=== PATIENT | male | born 1975 | race American Indian/Alaskan Native ===

== ENCOUNTER 2017-07-30 23:59 | Observation (INO) | payer MEDICAID ==
[2017-07-31 00:08] VITALS: RESP 18; TEMP 99.1
[2017-07-31] MEDS ORDERED: Sodium Chloride 0.9% 1,000 ML IV STA (00:36)
--- NOTE | 2017-07-31 00:39 | ED PDOC ---
HPI: General Adult Time Seen by Provider: 07/31/17 00:06 Chief Complaint (Nursing): Lower Extremity Problem/Injury Chief Complaint (Provider): Right knee pain, right wrist pain, possible syncope History Per: Patient History/Exam Limitations: no limitations Onset/Duration Of Symptoms: Unknown Have you had recent travel within the past 21 days to any of the following countries: [place], [place], [place] or [place]?: No Additional Complaint(s): Pt states when he got home he saw his knee was bleeding and his right wrist hurt. Pt states he drinks daily and does not know what happened to his knee. Pt states I dont remember, I just looked down and saw blood. EMS reports seizure activity. Pt was in room and began to tremble. RN asked EMS if this is what they witnessed and they said yes. Pt alert and oriented during trembling. Pt reports drinking daily and reports having several beers today. Past Medical History Reviewed: Historical Data, Nursing Documentation, Vital Signs Vital Signs: Last Vital Signs Temp 99.1 F 07/31/17 00:02 Pulse 96 H 07/31/17 04:31 Resp 18 07/31/17 04:31 BP 102/65 07/31/17 04:31 Pulse Ox 100 07/31/17 04:31 - Medical History PMH: Seizures Denies: Anxiety, Chronic Kidney Disease - Family History Family History: States: Unknown Family Hx - Social History Current smoker - smoking cessation education provided: No Alcohol: > 2 Drinks/Day Drugs: Denies - Immunization History Hx Tetanus Toxoid Vaccination: No Hx Influenza Vaccination: No Hx Pneumococcal Vaccination: No - Home Medications Home Medications: Ambulatory Orders Medication Instructions Recorded Folic Acid 1 mg PO DAILY #0 tab 08/26/16 Thiamine [Vitamin B1 Tab] 100 mg PO DAILY #0 tab 08/26/16 chlordiazePOXIDE [Librium] 25 mg PO TID #10 cap 08/26/16 levETIRAcetam [Keppra] 500 mg PO BID #0 tab 08/26/16 - Allergies Allergies/Adverse Reactions: Allergies Allergy/AdvReac Type Severity Reaction Status Date / Time No Known Allergies Allergy Verified 07/31/17 00:02 Review of Systems ROS Statement: Except As Marked, All Systems Reviewed And Found Negative Constitutional: Negative for: Fever, Chills Cardiovascular: Negative for: Chest Pain, Palpitations Gastrointestinal: Negative for: Nausea, Abdominal Pain Skin: Positive for: Other (Right knee) - Laboratory Results Result Diagrams: 07/31/17 00:20 07/31/17 00:20 - ECG O2 Sat by Pulse Oximetry: 98 Medical Decision Making Medical Decision Making: Pt in bed. NAD. Endorsed to Dr. Brooks pending sobriety. ED OBSERVATION Date of observation admission: 07/31/17 Time of observation admission: 03:00 - Observation admission statement Patient is being placed in observation because:: Alcohol intoxication - Goals of Observation Goals of observation are:: Sobriety - Progress Note Progress Note: 07/31/17 05:22 In bed. Sleeping. Disposition - Clinical Impression Clinical Impression: Alcohol abuse with intoxication, Knee laceration - Patient ED Disposition Is Patient to be Admitted: Transfer of Care - Disposition Disposition: Transfer of Care Disposition Time: 05:22 Condition: STABLE Forms: [facility] (Polish) Laceration - Laceration Repair Right lateral knee Wound Length (In cm): 2 Description Of Wound: Linear Wound Cleansed With: Sterile Saline Anesthesia: Lidocaine 1%, With Epi Wound Examination: Irrigated With Saline, No FB With Wound Exploration, No Tendon Injury With Wound Exploration Wound Closure: Suture Suture Technique And Material Used: Nylon Wound Complexity: Simple (Sutured by Dr. Meredith Nuñez, family sociologist under supervision of myself and Dr. Brooks)
[2017-07-31 00:41] LABS: BASO % 0.3 % (0.0-2.0); EOS % 0.5 % (0.0-4.0); HEMATOCRIT 35.3 % (35.0-51.0); LYMPH # 1.9 K/uL (1.0-4.3); LYMPH % 50.5 % (20.0-40.0); MEAN CELL VOLUME 100.9 fl (80.0-94.0); MEAN CORPUSCULAR HEMOGLOBIN 33.4 pg (27.0-31.0); MEAN CORPUSCULAR HGB CONC 33.1 g/dL (33.0-37.0); MONO # 0.5 K/uL (0.0-0.8); MONO % 14.2 % (0.0-10.0); NEUT # 1.3 K/uL (1.8-7.0); NEUT % 34.5 % (50.0-75.0); NRBC % 0.5 % (0.0-0.0); RED CELL DISTRIBUTION WIDTH 12.4 % (11.5-14.5); WHITE BLOOD COUNT 3.7 K/uL (4.8-10.8)
[2017-07-31 00:51] LABS: ALKALINE PHOSPHATASE 70 U/L (38-126); ALT/SGPT 34 U/L (21-72); AST/SGOT 166 U/L (17-59); BILIRUBIN,TOTAL 1.1 mg/dl (0.2-1.3); BLOOD UREA NITROGEN 5 mg/dl (9-20); CALCIUM 9.4 mg/dL (8.4-10.2); CARBON DIOXIDE 21 mmol/L (22-30); CHLORIDE 107 mmol/L (98-107); GFR AFRICAN-AMERICAN > 60; GLUCOSE,RANDOM 113 mg/dL (75-110); POTASSIUM 4.7 MMOL/L (3.6-5.0); SODIUM 151 mmol/l (132-148); TOTAL PROTEIN 9.1 G/DL (6.3-8.2)
[2017-07-31 01:00] LABS: ALB/GLOB RATIO 1.5 (1.0-2.1)
[2017-07-31 01:01] LABS: ALCOHOL SERUM 474 mg/dl (0-10)
[2017-07-31 01:35] LABS: PARTIAL THROMBOPLASTIN TIME 31.9 Seconds (25.6-37.1)
[2017-07-31] MEDS ORDERED: Lidocaine 2% w Epi 1:100,000 Inj IJ STA (01:55)
[2017-07-31] MEDS ORDERED: Lidocaine 2% w Epi 1:100,000 Inj IJ ONE (02:03)
[2017-07-31 06:08] VITALS: O2SAT 100
--- NOTE | 2017-07-31 07:03 | ED PDOC ---
- Laboratory Results Result Diagrams: 07/31/17 00:20 07/31/17 00:20 - ECG O2 Sat by Pulse Oximetry: 100 (RA) Pulse Ox Interpretation: Normal Medical Decision Making Medical Decision Making: Time: 6:00 --Patient is signed out to me by Angela Cabello PA-C, pending clinical sobriety. *see ED-OBS tab Scribe Attestation: Documented by Hilda Hua, acting as a scribe for Damian Brooks MD Provider Scribe Attestation: All medical record entries made by the Scribe were at my direction and personally dictated by me. I have reviewed the chart and agree that the record accurately reflects my personal performance of the history, physical exam, medical decision making, and the department course for this patient. I have also personally directed, reviewed, and agree with the discharge instructions and disposition. Disposition - Clinical Impression Clinical Impression: Alcohol abuse with intoxication, Knee laceration - POA Present On Arrival: Falls Or Trauma - Disposition Disposition: Transfer of Care Disposition Time: 07:00 Condition: STABLE Patient Signed Over To: Ira Gómez ED OBSERVATION Date of observation admission: 07/31/17 Time of observation admission: 03:00 - Observation admission statement Patient is being placed in observation because:: alcohol intoxication - Goals of Observation Goals of observation are:: clinical sobriety - Progress Note Progress Note: 07/31/17 Time: 6:00 --Patient is resting with stable vital signs Time: 7:00 --Patient is signed out by me to Dr. Ira Gómez, pending clinical sobriety
--- NOTE | 2017-07-31 07:22 | ED PDOC ---
- Laboratory Results Result Diagrams: 07/31/17 00:20 07/31/17 00:20 - ECG O2 Sat by Pulse Oximetry: 100 (RA) Pulse Ox Interpretation: Normal Medical Decision Making Medical Decision Making: Receiving sign out: Patient signed out to me by Dr. Brooks at [address] head and clinical sobriety. See ED-OBS for further documentation Scribe Attestation: Documented by Vickie Wakefield and Nima Daniels acting as a scribe for Ira Gómez MD. Provider Attestation: All medical record entries made by the Scribe were at my direction and personally dictated by me. I have reviewed the chart and agree that the record accurately reflects my personal performance of the history, physical exam, medical decision making, and the department course for this patient. I have also personally directed, reviewed, and agree with the discharge instructions and disposition. Disposition - Clinical Impression Clinical Impression: Alcohol abuse with intoxication, Knee laceration - POA Present On Arrival: Falls Or Trauma - Disposition Disposition: Routine/Home Disposition Time: 14:32 Condition: STABLE ED OBSERVATION Date of observation admission: 07/31/17 Time of observation admission: 03:00 - Progress Note Progress Note: 07/31/17 07:00 Patient signed out to me pending CT head, clinical sobriety. 07/31/17 08:28 Patient resting in room, no acute distress. 07/31/17 09:42 CT Head Impression: No intracranial hemorrhage. No extra-axial collection. No recent infarct. Cerebral cortical atrophy greater than expected for the patient age, however not significantly changed from the prior study. 07/31/17 10:01 XR Right wrist impression: No fracture. XR Right knee impression: No appreciable fracture. No joint effusion. 07/31/17 11:30 Patient resting comfortably with stable vitals 07/31/17 1:30 Patient is currently resting, no acute distress
--- NOTE | 2017-07-31 09:43 | CT ---
PROCEDURE: CT HEAD WITHOUT CONTRAST. HISTORY: head injury? COMPARISON: 11/18/2016 TECHNIQUE: Axial computed tomography images were obtained through the head/brain without intravenous contrast. Radiation dose: Total exam DLP = 828 mGy-cm. This CT exam was performed using one or more of the following dose reduction techniques: Automated exposure control, adjustment of the mA and/or kV according to patient size, and/or use of iterative reconstruction technique. FINDINGS: HEMORRHAGE: No intracranial hemorrhage. BRAIN: No mass effect or edema. Cerebral cortical atrophy greater than the patient's expected age. VENTRICLES: Unremarkable. No hydrocephalus. CALVARIUM: Unremarkable. PARANASAL SINUSES: Unremarkable as visualized. No significant inflammatory changes. MASTOID AIR CELLS: Unremarkable as visualized. No inflammatory changes. OTHER FINDINGS: None. IMPRESSION: No intracranial hemorrhage. No extra-axial collection. No recent infarct. Cerebral cortical atrophy greater than expected for the patient's age, however not significantly changed from the prior study.
--- NOTE | 2017-07-31 10:00 | RAD ---
PROCEDURE: Right Knee Radiographs. HISTORY: knee injury COMPARISON: 02/01/2015 FINDINGS: BONES: Three views of the right knee were performed. No appreciable fracture is noted. Patella is in normal location. Mild degenerative changes are seen. Tibial plateaus are intact. No lytic process is identified. Mild osteopenia. JOINTS: Mild DJD. JOINT EFFUSION: None. OTHER FINDINGS: None. IMPRESSION: No appreciable fracture. No joint effusion.
--- NOTE | 2017-07-31 10:02 | RAD ---
PROCEDURE: Right Wrist Radiographs. HISTORY: wrist pain, syncope COMPARISON: None. FINDINGS: BONES: Three views of the right wrist were performed. Navicular bone is intact. There is some probable mild degenerative changes of the distal right ulna. Visualized metacarpals are intact. No abnormal carpal bone widening is seen. JOINTS: Normal. No dislocation. SOFT TISSUES: Normal. OTHER FINDINGS: None. IMPRESSION: No fracture.
[2017-07-31 13:20] VITALS: BP 136/53; PULSE 101
== END 2017-07-31 16:00 | disposition home or self-care (01) ==
LOC: H.ER 23:59 → H.EROBSV 07-31 03:00
PROVIDERS: ADMIT Emergency Medicine; ATTEND Emergency Medicine
DX: F10.129 Alcohol abuse with intoxication, unspecified (principal); Z23 Encounter for immunization; S81.011A Laceration without foreign body, right knee, initial encounter; X58.XXXA Exposure to other specified factors, initial encounter; Y93.9 Activity, unspecified; Y92.9 Unspecified place or not applicable; Y90.8 Blood alcohol level of 240 mg/100 ml or more
CPT/HCPCS: 12001; 70450; 73100; 73562; 80053; 80171; 80320; 84484; 85025; 85610; 85730; 90471; 90715; 96360; 99285; G0378; J7040

== ENCOUNTER 2018-03-09 19:09 | Observation (INO) | payer MEDICAID, OTHER ==
[2018-03-09] MEDS ORDERED: Sodium Chloride 0.9% 1,000 ML IV STA (19:34)
[2018-03-09 20:09] LABS: BASO % 1.1 % (0.0-2.0); HEMOGLOBIN 11.5 g/dL (12.0-18.0); LYMPH # 0.4 K/uL (1.0-4.3); LYMPH % 16.4 % (20.0-40.0); MEAN CORPUSCULAR HEMOGLOBIN 32.9 pg (27.0-31.0); MEAN CORPUSCULAR HGB CONC 33.6 g/dL (33.0-37.0); MONO # 0.3 K/uL (0.0-0.8); MONO % 15.3 % (0.0-10.0); NEUT # 1.5 K/uL (1.8-7.0); NEUT % 67.2 % (50.0-75.0); NRBC % 0.7 % (0.0-0.0); RBC 3.49 Mil/uL (4.40-5.90); RED CELL DISTRIBUTION WIDTH 13.3 % (11.5-14.5); WHITE BLOOD COUNT 2.3 K/uL (4.8-10.8)
[2018-03-09 20:17] LABS: ALB/GLOB RATIO 1.4 (1.0-2.1); ALBUMIN 5.1 g/dL (3.5-5.0); ALT/SGPT 75 U/L (21-72); AST/SGOT 174 U/L (17-59); BLOOD UREA NITROGEN 9 mg/dl (9-20); CALCIUM 9.6 mg/dL (8.4-10.2); GFR AFRICAN-AMERICAN > 60; GFR NON-AFRICAN AMERICAN > 60
--- NOTE | 2018-03-09 21:21 | ED PDOC ---
HPI: Seizure Time Seen by Provider: 03/09/18 19:32 Chief Complaint (Nursing): Seizure Chief Complaint (Provider): Seizures History Per: Family (mother and father) History/Exam Limitations: no limitations Recent Seizure Activity Began: Just Before Arrival Number Of Seizures: One Length Of Seizures (Duration): Minutes (15) Quality Of Seizure: Generalized Precipitating Factor(s): Recent Alcohol Ingestion Associated Symptoms: denies: Bit Tongue, Incontinence Of Urine, Incontinence Of Stool, Injury As A Result Of Seizure Activity Additional History Per: Patient Additional Complaint(s): 42yo male with history of alcohol related seizures, alcoholism, who has been non -compliant with his seizure medications (keppra and dilantin) for the past week , presents to ED for evaluation after he had a seizure. Patient reports he felt as if a seizure was "coming on" so he went to the living room where his father witnessed the patient have a generalized tonic-clonic seizure, reported to be not as severe compared to prior seizures. Father states the seizure lasted for 15 minutes and states the patient was not "unconscious." Father states he did not note eyes rolling back, drooling, or urinary incontinence. Currently, patient reports he feels dizzy and shaky. Per family, patient drinks daily (3+ beers) and his last drink was yesterday. He offers no other medical complaints. PMD: Dr. Cespedes (patient has never visited, this is doctor provided by insurance) Past Medical History Reviewed: Historical Data, Nursing Documentation, Vital Signs Vital Signs: Last Vital Signs Temp 98.6 F 03/10/18 11:58 Pulse 75 03/10/18 11:58 Resp 18 03/10/18 11:58 BP 118/76 03/10/18 11:58 Pulse Ox 98 03/10/18 11:58 - Medical History PMH: Asthma, Seizures Denies: Anxiety, Chronic Kidney Disease Other PMH: alcoholsim - Surgical History Surgical History: No Surg Hx - Family History Family History: States: Diabetes, Hypertension - Living Arrangements Living Arrangements: With Family - Social History Current smoker - smoking cessation education provided: Yes Alcohol: > 2 Drinks/Day Drugs: Denies - Immunization History Hx Tetanus Toxoid Vaccination: No Hx Influenza Vaccination: No Hx Pneumococcal Vaccination: No - Home Medications Home Medications: Ambulatory Orders Medication Instructions Recorded levETIRAcetam [Keppra] 500 mg PO BID #0 tab 10/27/16 Phenytoin [Dilantin] 100 mg PO DAILY 03/10/18 - Allergies Allergies/Adverse Reactions: Allergies Allergy/AdvReac Type Severity Reaction Status Date / Time No Known Allergies Allergy Verified 03/09/18 19:11 Review of Systems ROS Statement: Except As Marked, All Systems Reviewed And Found Negative (as per HPI) ENT: Negative for: Other (drooling; tongue bite) Genitourinary Male: Negative for: Incontinence Neurological: Positive for: Seizures, Dizziness Physical Exam - Reviewed Nursing Documentation Reviewed: Yes Vital Signs Reviewed: Yes - Physical Exam Appears: Positive for: In Acute Distress. Negative for: Well (+ cachectic appearing) Head Exam: Positive for: ATRAUMATIC, NORMOCEPHALIC Skin: Positive for: Warm, Dry Eye Exam: Positive for: EOMI, PERRL ENT: Positive for: Pharynx Is (clear), Other (tacky mucus membranes) Neck: Positive for: Painless ROM, Supple Cardiovascular/Chest: Positive for: Regular Rate, Rhythm. Negative for: Murmur Respiratory: Positive for: Normal Breath Sounds. Negative for: Wheezing Gastrointestinal/Abdominal: Positive for: Soft. Negative for: Tenderness Back: Positive for: Normal Inspection. Negative for: Decreased ROM Extremity: Positive for: Other (extremity with poor muscle bulk; tremors noted to bilateral upper arms. intention tremor noted to bilateral lower legs. Motor strength 5/5 all extremities.). Negative for: Tenderness, Deformity Lymphatic: Negative for: Adenopathy Neurologic/Psych: Positive for: Alert, Oriented, Mood/Affect (anxious). Negative for: Motor/Sensory Deficits - Laboratory Results Result Diagrams: 03/09/18 19:56 03/09/18 19:56 - ECG O2 Sat by Pulse Oximetry: 100 (RA) Pulse Ox Interpretation: Normal Medical Decision Making Medical Decision Making: Impression: Seizure Differential: Including but not limited to breakthrough seizure, alcohol withdrawal seizure, delirium tremens, seizure secondary to subtherapeutic seizure medications, electrolyte abnormalities, dehydration Plan: -- Labs -- Ativan 2mg IVP -- IV Fluids -- UDS -- Continuous billing and insurance coordinator Labs demonstrate pancytopenia which appears chronic, as well as elevated lactic acid which can be c/w recent seizure. Pt persistently shaky in ER. Will hospitalize for alcohol withdrawal. Seizure may be due to medication noncompliance or withdrawal, and concern for recurrent seizure given both issues. [facility] Scribe Attestation: Documented by Vickie Wakefield, acting as a scribe for Louann Chavez MD Provider Scribe Attestation: All medical record entries made by the Scribe were at my direction and personally dictated by me. I have reviewed the chart and agree that the record accurately reflects my personal performance of the history, physical exam, medical decision making, and the department course for this patient. I have also personally directed, reviewed, and agree with the discharge instructions and disposition. Disposition - Clinical Impression Clinical Impression: Alcohol withdrawal, Generalized seizure Counseled Patient/Family Regarding: Studies Performed, Diagnosis - Disposition Disposition Time: 23:00 Condition: FAIR - Pt Status Changed To: Hospital Disposition Of: Observation - POA Present On Arrival: Falls Or Trauma
[2018-03-09] MEDS ORDERED: levETIRAcetam 500 MG in Sodium Chloride 0.9% 100 ML IVPB STA (23:09)
[2018-03-10 03:29] LABS: BARBITURATES, UR NEGATIVE (NEGATIVE)
[2018-03-10 03:30] LABS: BENZODIAZEPINES, UR NEGATIVE (NEGATIVE); OPIATES, UR NEGATIVE (NEGATIVE); PHENCYCLIDINE, UR NEGATIVE (NEGATIVE)
--- NOTE | 2018-03-10 08:54 | RAD ---
HISTORY: seziure COMPARISON: Frontal chest radiograph 11/17/2016. FINDINGS: LUNGS: No active pulmonary disease. PLEURA: No significant pleural effusion identified, no pneumothorax apparent. CARDIOVASCULAR: Normal. OSSEOUS STRUCTURES: No significant abnormalities. VISUALIZED UPPER ABDOMEN: Normal. OTHER FINDINGS: None. IMPRESSION: No interval acute cardiopulmonary disease appreciated.
[2018-03-10] MEDS ORDERED: Pneumococcal 23-Valent Vaccine IM ONE (09:00)
[2018-03-10] MEDS ORDERED: Multivitamin With Minerals Tab PO SCH (09:00)
[2018-03-10] MEDS: Sodium Chloride 0.9% 500 ML IV SCH ×2 (09:12→18:06)
--- NOTE | 2018-03-10 09:20 | CP.PCM.HP ---
History of Present Illness - History of Present Illness History of Present Illness: 42 yo ,m, PMhx/o ETOH related seizures, alcoholism, who has been non-compliant with his seizure medications (keppra and dilantin) for the past week admitted for one episode of seizure. Patient reports he felt as if a seizure was "coming on" so he went to the living room where his father witnessed the patient have a generalized tonic-clonic seizure, reported to be not as severe compared to prior seizures. Father states the seizure lasted for 15 minutes and states the patient was not "unconscious." Father states he did not note eyes rolling back, drooling, or urinary incontinence. Per family, patient drinks daily (3+ beers) and his last drink was yesterday. He offers no other medical complaints. He denies fever, cough, SOB, n,v,d,abd pain PMD: Dr. Cespedes (patient has never visited, this is doctor provided by insurance) Present on Admission - Present on Admission Any Indicators Present on Admission: No History of DVT/PE: No History of Uncontrolled Diabetes: No Urinary Catheter: No Review of Systems - Review of Systems All systems: reviewed and no additional remarkable complaints except - Neurological Additional comments: seizure Past Patient History - Infectious Disease Hx of Infectious Diseases: None - Past Medical History & Family History Past Medical History?: Yes - Past Social History Smoking Status: Never Smoked - CARDIAC Hx Cardiac Disorders: No - PULMONARY Hx Respiratory Disorders: Yes Hx Asthma: Yes - NEUROLOGICAL Hx Neurological Disorder: Yes Hx Seizures: Yes - HEENT Hx HEENT Problems: No - RENAL Hx Chronic Kidney Disease: No - ENDOCRINE/METABOLIC Hx Endocrine Disorders: No - HEMATOLOGICAL/ONCOLOGICAL Hx Blood Disorders: No - INTEGUMENTARY Hx Dermatological Problems: No - MUSCULOSKELETAL/RHEUMATOLOGICAL Hx Musculoskeletal Disorders: Yes Hx Falls: Yes Hx Fractures: Yes (left arm) - GASTROINTESTINAL Hx Gastrointestinal Disorders: No - GENITOURINARY/GYNECOLOGICAL Hx Genitourinary Disorders: No - PSYCHIATRIC Hx Psychophysiologic Disorder: Yes Hx Anxiety: No Hx Substance Use: No (DENIES) - SURGICAL HISTORY Hx Surgeries: Yes Other/Comment: Left arm Sx - ANESTHESIA Hx Anesthesia: Yes Hx Anesthesia Reactions: No Hx Malignant Hyperthermia: No Meds Allergies/Adverse Reactions: Allergies Allergy/AdvReac Type Severity Reaction Status Date / Time No Known Allergies Allergy Verified 03/09/18 19:11 Physical Exam - Constitutional Appears: Non-toxic, No Acute Distress - Head Exam Head Exam: ATRAUMATIC, NORMOCEPHALIC - Eye Exam Eye Exam: Normal appearance - ENT Exam ENT Exam: Mucous Membranes Moist - Neck Exam Neck exam: Positive for: Normal Inspection - Respiratory Exam Respiratory Exam: Clear to Auscultation Bilateral. absent: Rhonchi, Wheezes - Cardiovascular Exam Cardiovascular Exam: REGULAR RHYTHM, +S1, +S2 - GI/Abdominal Exam GI & Abdominal Exam: Normal Bowel Sounds, Soft. absent: Tenderness - Extremities Exam Extremities exam: Positive for: normal inspection. Negative for: pedal edema - Back Exam Back exam: NORMAL INSPECTION - Neurological Exam Neurological exam: Alert, Oriented x3 - Psychiatric Exam Psychiatric exam: Normal Affect, Normal Mood - Skin Skin Exam: Intact Results - Vital Signs Recent Vital Signs: Last Vital Signs Temp 98.7 F 03/10/18 08:04 Pulse 83 03/10/18 08:04 Resp 18 03/10/18 08:04 BP 111/72 03/10/18 08:04 Pulse Ox 97 03/10/18 08:04 - Labs Result Diagrams: 03/09/18 19:56 03/09/18 19:56 Labs: Laboratory Results - last 24 hr 03/09/18 03/09/18 03/09/18 19:56 19:56 19:56 WBC 2.3 L RBC 3.49 L Hgb 11.5 L Hct 34.2 L MCV 98.0 H D MCH 32.9 H MCHC 33.6 RDW 13.3 Plt Count 70 L D MPV 10.0 Neut % (Auto) 67.2 Lymph % (Auto) 16.4 L [place] % (Auto) 15.3 H Eos % (Auto) 0.0 Baso % (Auto) 1.1 Neut # (Auto) 1.5 L Lymph # (Auto) 0.4 L [place] # (Auto) 0.3 Eos # (Auto) 0.0 Baso # (Auto) 0.0 Sodium 141 Potassium 3.8 Chloride 98 Carbon Dioxide 24 Anion Gap 23 H BUN 9 Creatinine 0.5 L Est GFR ( Amer) > 60 Est GFR (Non-Af Amer) > 60 POC Glucose (mg/dL) Random Glucose 125 H Lactic Acid 2.5 H Calcium 9.6 Phosphorus 4.8 H Magnesium 1.6 Total Bilirubin 1.1 AST 174 H ALT 75 H D Alkaline Phosphatase 89 Total Creatine Kinase 157 Total Protein 8.7 H Albumin 5.1 H Globulin 3.6 Albumin/Globulin Ratio 1.4 Urine Opiates Screen Urine Methadone Screen Ur Barbiturates Screen Phenytoin Ur Phencyclidine Scrn Ur Amphetamines Screen U Benzodiazepines Scrn U Oth Cocaine Metabols U Cannabinoids Screen Alcohol, Quantitative < 10 03/09/18 03/09/18 03/10/18 20:03 22:33 02:51 WBC RBC Hgb Hct MCV MCH MCHC RDW Plt Count MPV Neut % (Auto) Lymph % (Auto) [place] % (Auto) Eos % (Auto) Baso % (Auto) Neut # (Auto) Lymph # (Auto) [place] # (Auto) Eos # (Auto) Baso # (Auto) Sodium Potassium Chloride Carbon Dioxide Anion Gap BUN Creatinine Est GFR ( Amer) Est GFR (Non-Af Amer) POC Glucose (mg/dL) 109 Random Glucose Lactic Acid Calcium Phosphorus Magnesium Total Bilirubin AST ALT Alkaline Phosphatase Total Creatine Kinase Total Protein Albumin Globulin Albumin/Globulin Ratio Urine Opiates Screen Negative Urine Methadone Screen Negative Ur Barbiturates Screen Negative Phenytoin < 3.0 L Ur Phencyclidine Scrn Negative Ur Amphetamines Screen Negative U Benzodiazepines Scrn Negative U Oth Cocaine Metabols Negative U Cannabinoids Screen Negative Alcohol, Quantitative Assessment & Plan - Assessment and Plan (Free Text) Plan: Assessment/Plan 1) Generalized seizure -reports hx/o seizure vs ETOH withdrawal Patient not compliance with medications -neurologist consult suggested. -activan, Librium 2) Pancytopenia -unspecified -may be secondary ETOH -f/u Abd US f/u HIV, hep B, hep C -f/u cbc, cmp, folate , vit b12 3) ETOH abuser Drinks daily 3 beers started at age 21 CIWA score 2 -ETOH withdrawal protocol 4) DVT Prophylaxis SCD due to thrombocytopenia
[2018-03-10] MEDS: levETIRAcetam 500 MG in Sodium Chloride 0.9% 100 ML IVPB SCH ×2 (11:11→21:44)
--- NOTE | 2018-03-10 15:57 | CP.PCM.CON ---
History of Present Illness - History of Present Illness History of Present Illness: Mr. Angulo is a 42-year-old man with a past medical history of alcoholism and seizure disorder, who is non-compliant with Keppra/Dilantin, and had a seizure yesterday that was witnessed by his father. He was brought in to the ED for evaluation. Review of Systems - Review of Systems All systems: reviewed and no additional remarkable complaints except Past Patient History - Infectious Disease Hx of Infectious Diseases: None - Past Medical History & Family History Past Medical History?: Yes - Past Social History Smoking Status: Never Smoked - CARDIAC Hx Cardiac Disorders: No - PULMONARY Hx Respiratory Disorders: Yes Hx Asthma: Yes - NEUROLOGICAL Hx Neurological Disorder: Yes Hx Seizures: Yes - HEENT Hx HEENT Problems: No - RENAL Hx Chronic Kidney Disease: No - ENDOCRINE/METABOLIC Hx Endocrine Disorders: No - HEMATOLOGICAL/ONCOLOGICAL Hx Blood Disorders: No - INTEGUMENTARY Hx Dermatological Problems: No - MUSCULOSKELETAL/RHEUMATOLOGICAL Hx Musculoskeletal Disorders: Yes Hx Falls: Yes Hx Fractures: Yes (left arm) - GASTROINTESTINAL Hx Gastrointestinal Disorders: No - GENITOURINARY/GYNECOLOGICAL Hx Genitourinary Disorders: No - PSYCHIATRIC Hx Psychophysiologic Disorder: Yes Hx Anxiety: No Hx Substance Use: No (DENIES) - SURGICAL HISTORY Hx Surgeries: Yes Other/Comment: Left arm Sx - ANESTHESIA Hx Anesthesia: Yes Hx Anesthesia Reactions: No Hx Malignant Hyperthermia: No Meds Allergies/Adverse Reactions: Allergies Allergy/AdvReac Type Severity Reaction Status Date / Time No Known Allergies Allergy Verified 03/09/18 19:11 - Medications Medications: Current Medications Chlordiazepoxide (Librium) 25 mg PO Q4H PRN PRN Reason: Withdrawl Folic Acid (Folic Acid) 1 mg PO DAILY [facility] Last Admin: 03/10/18 08:48 Dose: 1 mg Sodium Chloride (Sodium Chloride 0.9%) 500 mls @ 100 mls/hr IV .Q5H SEUN Last Admin: 03/10/18 09:12 Dose: 100 mls/hr Levetiracetam 500 mg/ Sodium (Chloride) 105 mls @ 210 mls/hr IVPB Q12 SEUN Last Admin: 03/10/18 11:11 Dose: 210 mls/hr Lorazepam (Ativan) 1 mg IVP Q4H PRN PRN Reason: Symptoms of alcohol withdrawl Multivitamins/Minerals (Therapeutic-M Tab) 1 tab PO DAILY [facility] Last Admin: 03/10/18 08:48 Dose: 1 tab Thiamine HCl (Vitamin B1 Tab) 100 mg PO DAILY [facility] Last Admin: 03/10/18 09:12 Dose: 100 mg Physical Exam - Neurological Exam Neurological exam: Alert, CN II-XII Intact, Normal Gait, Oriented x3, Reflexes Normal Results - Vital Signs Recent Vital Signs: Last Vital Signs Temp 98.6 F 03/10/18 11:58 Pulse 75 03/10/18 11:58 Resp 18 03/10/18 11:58 BP 118/76 03/10/18 11:58 Pulse Ox 98 03/10/18 11:58 - Labs Result Diagrams: 03/09/18 19:56 03/09/18 19:56 Labs: Laboratory Results - last 24 hr 03/09/18 03/09/18 03/09/18 19:56 19:56 19:56 WBC 2.3 L RBC 3.49 L Hgb 11.5 L Hct 34.2 L MCV 98.0 H D MCH 32.9 H MCHC 33.6 RDW 13.3 Plt Count 70 L D MPV 10.0 Neut % (Auto) 67.2 Lymph % (Auto) 16.4 L Winkler % (Auto) 15.3 H Eos % (Auto) 0.0 Baso % (Auto) 1.1 Neut # (Auto) 1.5 L Lymph # (Auto) 0.4 L Winkler # (Auto) 0.3 Eos # (Auto) 0.0 Baso # (Auto) 0.0 Sodium 141 Potassium 3.8 Chloride 98 Carbon Dioxide 24 Anion Gap 23 H BUN 9 Creatinine 0.5 L Est GFR ( Amer) > 60 Est GFR (Non-Af Amer) > 60 POC Glucose (mg/dL) Random Glucose 125 H Lactic Acid 2.5 H Calcium 9.6 Phosphorus 4.8 H Magnesium 1.6 Total Bilirubin 1.1 AST 174 H ALT 75 H D Alkaline Phosphatase 89 Total Creatine Kinase 157 Total Protein 8.7 H Albumin 5.1 H Globulin 3.6 Albumin/Globulin Ratio 1.4 Urine Opiates Screen Urine Methadone Screen Ur Barbiturates Screen Phenytoin Ur Phencyclidine Scrn Ur Amphetamines Screen U Benzodiazepines Scrn U Oth Cocaine Metabols U Cannabinoids Screen Alcohol, Quantitative < 10 03/09/18 03/09/1818 20:03 22:33 02:51 WBC RBC Hgb Hct MCV MCH MCHC RDW Plt Count MPV Neut % (Auto) Lymph % (Auto) Winkler % (Auto) Eos % (Auto) Baso % (Auto) Neut # (Auto) Lymph # (Auto) Winkler # (Auto) Eos # (Auto) Baso # (Auto) Sodium Potassium Chloride Carbon Dioxide Anion Gap BUN Creatinine Est GFR ( Amer) Est GFR (Non-Af Amer) POC Glucose (mg/dL) 109 Random Glucose Lactic Acid Calcium Phosphorus Magnesium Total Bilirubin AST ALT Alkaline Phosphatase Total Creatine Kinase Total Protein Albumin Globulin Albumin/Globulin Ratio Urine Opiates Screen Negative Urine Methadone Screen Negative Ur Barbiturates Screen Negative Phenytoin < 3.0 L Ur Phencyclidine Scrn Negative Ur Amphetamines Screen Negative U Benzodiazepines Scrn Negative U Oth Cocaine Metabols Negative U Cannabinoids Screen Negative Alcohol, Quantitative Assessment & Plan (1) Generalized seizure Assessment and Plan: Resume home seizure medications and follow up with Dr. Haynes (neurologist). Status: Acute Priority: High
--- NOTE | 2018-03-10 16:53 | US ---
HISTORY: abn enzymes COMPARISON: Abdomen ultrasound examination 10/01/2013. TECHNIQUE: Sonographic evaluation of the abdomen. FINDINGS: LIVER: Measures 16.6 cm. Diffusely increased echogenicity of the liver parenchyma suggesting diffuse fatty infiltration. No mass. No intrahepatic bile duct dilatation. GALLBLADDER: Unremarkable. No gallstones. COMMON BILE DUCT: Measures 3.0 mm. No stones. No dilatation. PANCREAS: Unremarkable as visualized. No mass. No ductal dilatation. RIGHT KIDNEY: Measures 10.2cm. Normal echogenicity. No calculus, mass, or hydronephrosis. LEFT KIDNEY: Measures 9.4cm. Normal echogenicity. No calculus, mass, or hydronephrosis. SPLEEN: Normal in size and contour. No mass. AORTA: No aneurysmal dilatation. IVC: Unremarkable. OTHER FINDINGS: None. IMPRESSION: Hepatic steatosis suggested without additional hepatic, gallbladder or pancreas. Remainder the examination appears unremarkable.
[2018-03-10 21:19] LABS: HEPATITIS B SURFACE AG Negative (NEGATIVE)
[2018-03-10 21:24] LABS: HEPATITIS B CORE AB NEGATIVE (NEGATIVE)
[2018-03-10 21:37] LABS: HEPATITIS C ANTIBODY NEGATIVE (NEGATIVE)
[2018-03-11 00:10] VITALS: RESP 18; O2SAT 99
[2018-03-11 04:33] VITALS: BP 124/86; PULSE 106; TEMP 98.5
[2018-03-12 05:33] LABS: % CD4 (T HELPER CELL) 50 Percent (30-61); % CD8 (SUPPRESSOR T CELL) 37 Percent (12-42); ABSOLUTE CD4 CELLS 401 Cells/mcL (490-1740); ABSOLUTE CD8 CELLS 294 Cells/mcL (180-1170); ABSOLUTE LYMPHOCYTES 799 Cells/mcL (850-3900); HELPER/SUPPRESSOR RATIO 1.36 Ratio (0.86-5.00)
== END 2018-03-11 06:03 | disposition left against medical advice (07) ==
LOC: H.ER 19:09 → H.ERHOLD 22:27 → H.TEL 03-10 02:32
PROVIDERS: ADMIT Family Medicine; ATTEND Family Medicine
DX: G40.409 Other generalized epilepsy and epileptic syndromes, not intractable, without status epilepticus (principal); E11.9 Type 2 diabetes mellitus without complications; I10 Essential (primary) hypertension; J45.909 Unspecified asthma, uncomplicated; Z91.14 Patient's other noncompliance with medication regimen; Z91.19 Patient's noncompliance with other medical treatment and regimen; Z79.899 Other long term (current) drug therapy; D61.818 Other pancytopenia; F10.239 Alcohol dependence with withdrawal, unspecified; F17.200 Nicotine dependence, unspecified, uncomplicated
CPT/HCPCS: 36415; 71045; 76700; 80053; 80185; 80299; 80320; 80324; 80345; 80346; 80349; 80353; 80358; 80361; 82550; 82948; 83605; 83735; 83992; 84100; 85025; 86360; 86705; 86706; 86803; 87340; 87389; 87517; 96361; 96365; 96366; 96367; 96375; 96376; 97165; 99285; G0378; G8987; G8988; G8989; J1953; J2060; J7040; Q2009

== ENCOUNTER 2018-03-11 07:18 | Inpatient (IN) | payer OTHER ==
--- NOTE | 2018-03-11 07:58 | ED PDOC ---
HPI: Seizure Time Seen by Provider: 03/11/18 07:36 Chief Complaint (Nursing): Seizure Chief Complaint (Provider): Seizure History Per: Patient History/Exam Limitations: no limitations Additional Complaint(s): 42 year old male returns to the hospital after he eloped from Room 408 this morning. Patient has no active complaints. PMD: Dr. Joshua Whitfield Neurologist: Dr. Haynes Past Medical History Reviewed: Historical Data, Nursing Documentation, Vital Signs Vital Signs: Last Vital Signs Temp 100 F H 03/12/18 08:00 Pulse 97 H 03/12/18 08:00 Resp 13 03/12/18 08:00 BP 118/83 03/12/18 08:00 Pulse Ox 100 03/12/18 08:00 - Medical History PMH: Asthma, Fractures (left arm), Seizures Denies: Anxiety, Chronic Kidney Disease - Surgical History Surgical History: No Surg Hx - Family History Family History: States: Diabetes, Hypertension - Immunization History Hx Tetanus Toxoid Vaccination: No Hx Influenza Vaccination: No Hx Pneumococcal Vaccination: No - Home Medications Home Medications: Ambulatory Orders Medication Instructions Recorded levETIRAcetam [Keppra] 500 mg PO BID #0 tab 08/26/16 Phenytoin [Dilantin] 100 mg PO DAILY 03/10/18 - Allergies Allergies/Adverse Reactions: Allergies Allergy/AdvReac Type Severity Reaction Status Date / Time No Known Allergies Allergy Verified 03/09/18 19:11 Review of Systems ROS Statement: Except As Marked, All Systems Reviewed And Found Negative Neurological: Positive for: Other (possible seizure) Physical Exam - Reviewed Nursing Documentation Reviewed: Yes Vital Signs Reviewed: Yes - Physical Exam Appears: Positive for: Non-toxic, No Acute Distress Head Exam: Positive for: ATRAUMATIC, NORMOCEPHALIC Skin: Positive for: Normal Color, Warm, Dry Eye Exam: Positive for: EOMI, Normal appearance, PERRL ENT: Positive for: Normal ENT Inspection Neck: Positive for: Normal, Painless ROM, Supple Cardiovascular/Chest: Positive for: Regular Rate, Rhythm. Negative for: Murmur Respiratory: Positive for: Normal Breath Sounds. Negative for: Respiratory Distress Gastrointestinal/Abdominal: Positive for: Normal Exam, Soft. Negative for: Tenderness Back: Positive for: Normal Inspection. Negative for: L CVA Tenderness, R CVA Tenderness, Vertebral Tenderness Extremity: Positive for: Other (Tremulousness in both arms). Negative for: Pedal Edema, Deformity Neurologic/Psych: Positive for: Alert, Oriented (x3). Negative for: Motor/ Sensory Deficits - Laboratory Results Result Diagrams: 03/12/18 04:30 03/12/18 04:30 - ECG O2 Sat by Pulse Oximetry: 100 (RA) Pulse Ox Interpretation: Normal - Critical Care Total Time (In Min): 60 Medical Decision Making Medical Decision Making: Time: 0800 Impression: alcohol withdrawal Plan: -- Alcohol Serum -- CMP -- Dilantin -- CBC with differentials -- Levetiracetam Time: 956 -- Patient's case discussed with Dr. Taylor for admission. 11:10 Called to bedside, pt agitated, diaphoretic, HR 170s, Ativan 2 mg X 2 administered. Case discussed with Dr. Holbrook, admit to ICU. Scribe Attestation: Documented by Mely Carrillo, acting as a scribe for Dr. Ira Gómez MD. Provider Scribe Attestation: All medical record entries made by the Scribe were at my direction and personally dictated by me. I have reviewed the chart and agree that the record accurately reflects my personal performance of the history, physical exam, medical decision making, and the department course for this patient. I have also personally directed, reviewed, and agree with the discharge instructions and disposition. Disposition - Clinical Impression Clinical Impression: Delirium tremens, Seizure - Patient ED Disposition Is Patient to be Admitted: Yes - Disposition Disposition Time: 09:52 Condition: SERIOUS - Pt Status Changed To: Hospital Disposition Of: Inpatient - Admit Certification Admit to Inpatient:: After my assessment, the patient will require hospitalization for at least two midnights. This is because of the severity of symptoms shown, intensity of services needed, and/or the medical risk in this patient being treated as an outpatient. - POA Present On Arrival: None
[2018-03-11] MEDS ORDERED: Sodium Chloride 0.9% 1,000 ML IV STA (08:01)
[2018-03-11 08:38] LABS: BASO % 1.2 % (0.0-2.0); EOS % 0.1 % (0.0-4.0); HEMOGLOBIN 11.6 g/dL (12.0-18.0); LYMPH # 0.9 K/uL (1.0-4.3); LYMPH % 23.5 % (20.0-40.0); MEAN CELL VOLUME 98.4 fl (80.0-94.0); MEAN CORPUSCULAR HEMOGLOBIN 33.8 pg (27.0-31.0); MEAN CORPUSCULAR HGB CONC 34.3 g/dL (33.0-37.0); MEAN PLATELET VOLUME 11.8 fl (7.2-11.7); MONO # 0.5 K/uL (0.0-0.8); MONO % 14.5 % (0.0-10.0); NEUT # 2.3 K/uL (1.8-7.0); NEUT % 60.7 % (50.0-75.0); NRBC % 0.8 % (0.0-0.0); RBC 3.42 Mil/uL (4.40-5.90); RED CELL DISTRIBUTION WIDTH 12.9 % (11.5-14.5); WHITE BLOOD COUNT 3.8 K/uL (4.8-10.8)
[2018-03-11 09:17] LABS: ALB/GLOB RATIO 1.3 (1.0-2.1); ALBUMIN 5.2 g/dL (3.5-5.0); ALT/SGPT 46 U/L (21-72); AST/SGOT 121 U/L (17-59); BLOOD UREA NITROGEN 5 mg/dl (9-20); CALCIUM 9.3 mg/dL (8.4-10.2); GFR AFRICAN-AMERICAN > 60; GFR NON-AFRICAN AMERICAN > 60
[2018-03-11] MEDS ORDERED: Multivitamin (MVI) 10 ML, Thiamine 100 MG, Folic Acid 1 MG in Dextrose 5%/0.45% NS 1,00... IV ONE ×2 (10:19→13:16)
[2018-03-11] MEDS ORDERED: Lorazepam 100 MG in Sodium Chloride 0.9% 50 ML IVPB SCH (11:45)
[2018-03-11 11:51] LABS: BARBITURATES, UR NEGATIVE (NEGATIVE)
[2018-03-11 11:52] LABS: BENZODIAZEPINES, UR NEGATIVE (NEGATIVE); OPIATES, UR NEGATIVE (NEGATIVE); PHENCYCLIDINE, UR NEGATIVE (NEGATIVE)
[2018-03-11] MEDS ORDERED: Propofol 10 mg/ml 2,000 MG/200 ML VIAL ONE (12:40)
[2018-03-11] MEDS ORDERED: Midazolam 2 MG/2 ML VIAL ONE (12:49)
[2018-03-11] MEDS ORDERED: Succinylcholine 200 mg/10 ml Inj IV ONE ×2 (13:02→14:15)
[2018-03-11] MEDS ORDERED: Midazolam 50 MG in Dextrose 5% In Water 50 ML IV ONE ×2 (13:11→18:36)
[2018-03-11] MEDS ORDERED: Propofol 10 mg/ml Inj (20 ML) IV ONE (13:12)
[2018-03-11] MEDS ORDERED: Midazolam 2 MG/2 ML VIAL IV ONE (13:13)
[2018-03-11] MEDS ORDERED: levETIRAcetam 1,000 MG in Sodium Chloride 0.9% 100 ML IVPB ONE (13:27)
[2018-03-11] MEDS ORDERED: Phenytoin 250 mg/5 ml Inj IVP ONE (13:29)
[2018-03-11] MEDS ORDERED: Sodium Chloride 0.9% 1,000 ML IV SCH (13:30)
[2018-03-11] MEDS: Propofol 10 mg/ml 1,000 MG/100 ML VIAL IV SCH ×2 (13:30→19:30)
--- NOTE | 2018-03-11 13:35 | CP.PCM.CON ---
History of Present Illness - History of Present Illness History of Present Illness: 42yo M. Seizure disorder and ETOH abuse. was admitted yeasterday for withdrawal seizure, non-compliant with meds. He then absconded this morning from the hospital, only to return in DT's, with hallucinations. Brought to ICU and intubated and sedated. Review of Systems - Review of Systems Systems not reviewed;Unavailable: Altered Mental Status Past Patient History - Infectious Disease Hx of Infectious Diseases: None - Past Medical History & Family History Past Medical History?: Yes - Past Social History Smoking Status: Never Smoked - CARDIAC Hx Cardiac Disorders: No - PULMONARY Hx Asthma: Yes - NEUROLOGICAL Hx Seizures: Yes - HEENT Hx HEENT Problems: No - RENAL Hx Chronic Kidney Disease: No - ENDOCRINE/METABOLIC Hx Endocrine Disorders: No - HEMATOLOGICAL/ONCOLOGICAL Hx Blood Disorders: No - INTEGUMENTARY Hx Dermatological Problems: No - MUSCULOSKELETAL/RHEUMATOLOGICAL Hx Fractures: Yes (left arm) - GASTROINTESTINAL Hx Gastrointestinal Disorders: No - GENITOURINARY/GYNECOLOGICAL Hx Genitourinary Disorders: No - PSYCHIATRIC Hx Anxiety: No - SURGICAL HISTORY Hx Surgeries: Yes Other/Comment: Left arm Sx - ANESTHESIA Hx Anesthesia: Yes Hx Anesthesia Reactions: No Hx Malignant Hyperthermia: No Meds Allergies/Adverse Reactions: Allergies Allergy/AdvReac Type Severity Reaction Status Date / Time No Known Allergies Allergy Verified 03/09/18 19:11 - Medications Medications: Current Medications Lorazepam 100 mg/ Sodium (Chloride) 100 mls @ 3 mls/hr IVPB .Q24H SEUN; 3 MG/HR PRN Reason: Protocol Midazolam HCl 50 mg/ Dextrose 100 mls @ 4 mls/hr IV .Q24H ONE; 2 MG/HR PRN Reason: Protocol Stop: 03/12/18 13:10 Propofol (Diprivan) 1,000 mg in 100 mls @ 1.864 mls/hr IV .Q24H SEUN; 5 MCG/KG/ MIN PRN Reason: Protocol Stop: 03/12/18 13:13 Multivitamins/Vitamin C 10 ml/Thiamine HCl 100 mg/ Folic Acid 1 mg/ Dextrose/ Sodium Chloride 1,011.2 mls @ 75 mls/hr IV .[id number] ONE Stop: 03/12/18 21:28 Multivitamins/Vitamin C 10 ml/Thiamine HCl 100 mg/ Folic Acid 1 mg/ Dextrose/ Sodium Chloride 1,011.2 mls @ 75 mls/hr IV .[id number] ONE Stop: 03/13/18 21:28 Sodium Chloride (Sodium Chloride 0.9%) 1,000 mls @ 75 mls/hr IV .[id number] SEUN Stop: 03/12/18 13:19 Levetiracetam 1,000 mg/ Sodium (Chloride) 110 mls @ 210 mls/hr IVPB ONCE ONE Stop: 03/11/18 13:58 Levetiracetam 500 mg/ Sodium (Chloride) 105 mls @ 210 mls/hr IVPB Q12 SEUN Phenytoin (Dilantin) 500 mg IVP ONCE ONE Stop: 03/11/18 13:30 Phenytoin (Dilantin) 100 mg IVP Q8 [facility] Physical Exam - Head Exam Head Exam: ATRAUMATIC, NORMAL INSPECTION, NORMOCEPHALIC - Eye Exam Eye Exam: EOMI, Normal appearance, PERRL - ENT Exam ENT Exam: Mucous Membranes Moist, Normal Exam - Neck Exam Neck exam: Positive for: Normal Inspection - Respiratory Exam Respiratory Exam: Clear to Auscultation Bilateral, NORMAL BREATHING PATTERN - Cardiovascular Exam Cardiovascular Exam: Tachycardia - GI/Abdominal Exam GI & Abdominal Exam: Normal Bowel Sounds, Soft. absent: Tenderness - Neurological Exam Neurological exam: Alert, Altered - Psychiatric Exam Psychiatric exam: Agitated Results - Vital Signs Recent Vital Signs: Last Vital Signs Temp 97.5 F L 03/11/18 07:26 Pulse 103 H 03/11/18 12:19 Resp 16 03/11/18 12:19 BP 140/87 03/11/18 12:19 Pulse Ox 100 03/11/18 12:19 - Labs Result Diagrams: 03/11/18 08:18 03/11/18 08:18 Labs: Laboratory Results - last 24 hr 03/11/18 03/11/18 03/11/18 08:18 08:18 08:18 WBC 3.8 L D RBC 3.42 L Hgb 11.6 L Hct 33.7 L MCV 98.4 H MCH 33.8 H MCHC 34.3 RDW 12.9 Plt Count 109 L D MPV 11.8 H Neut % (Auto) 60.7 Lymph % (Auto) 23.5 Collier % (Auto) 14.5 H Eos % (Auto) 0.1 Baso % (Auto) 1.2 Neut # (Auto) 2.3 Lymph # (Auto) 0.9 L Collier # (Auto) 0.5 Eos # (Auto) 0.0 Baso # (Auto) 0.0 Sodium 137 Potassium 4.9 Chloride 97 L Carbon Dioxide 22 Anion Gap 23 H BUN 5 L Creatinine 0.6 L Est GFR ( Amer) > 60 Est GFR (Non-Af Amer) > 60 POC Glucose (mg/dL) Random Glucose 104 Calcium 9.3 Total Bilirubin 2.3 H AST 121 H D ALT 46 Alkaline Phosphatase 67 Total Protein 9.1 H Albumin 5.2 H Globulin 3.9 Albumin/Globulin Ratio 1.3 Urine Opiates Screen Urine Methadone Screen Ur Barbiturates Screen Phenytoin 6.6 L Ur Phencyclidine Scrn Ur Amphetamines Screen U Benzodiazepines Scrn U Oth Cocaine Metabols U Cannabinoids Screen Alcohol, Quantitative < 10 03/11/18 03/11/18 11:06 11:20 WBC RBC Hgb Hct MCV MCH MCHC RDW Plt Count MPV Neut % (Auto) Lymph % (Auto) Collier % (Auto) Eos % (Auto) Baso % (Auto) Neut # (Auto) Lymph # (Auto) Collier # (Auto) Eos # (Auto) Baso # (Auto) Sodium Potassium Chloride Carbon Dioxide Anion Gap BUN Creatinine Est GFR ( Amer) Est GFR (Non-Af Amer) POC Glucose (mg/dL) 121 H Random Glucose Calcium Total Bilirubin AST ALT Alkaline Phosphatase Total Protein Albumin Globulin Albumin/Globulin Ratio Urine Opiates Screen Negative Urine Methadone Screen Negative Ur Barbiturates Screen Negative Phenytoin Ur Phencyclidine Scrn Negative Ur Amphetamines Screen Negative U Benzodiazepines Scrn Negative U Oth Cocaine Metabols Negative U Cannabinoids Screen Negative Alcohol, Quantitative Assessment & Plan (1) DTs (delirium tremens) Assessment and Plan: 42yo M. PMHx seizure disorder, ETOH abuse. p/w DT's. Neuro: sedated with propofol gtt and versed gtt. Loaded and continued both Dilantin and Keppra. Pulm: intubated for sedation, on PRVC. CV: hemodynamically stable. Hem: no acute issues Renal: Banana Bag, alternating with NS@75 Endo: no acute issues GI: NPO, will start tube feeds, Jevity. ID: no acute issues DVT proph - lovenox GI proph - protonix david for strict I/O's during acute illness Code status - full code Critical Care Time spent 45 minutes Multi-disciplinary rounds were performed with house staff, nursing, speech therapy, respiratory therapy, pharmacy and nutrition with integrated input from the primary team/attending and other consulting services. The documented time is cumulative and includes review of patient data/exams/labs/chart review and examination of the patient on rounds and throughout the day; time is exclusive of any procedures or teaching time. Status: Acute
--- NOTE | 2018-03-11 14:07 | PCM.PROC ---
Procedures Attestation:: I certify that I have explained the specified Operation(s) or Procedure(s), risks, benefits and reasonable alternatives to the Patient and/or other person responsible. The opportunity was given to ask questions and all questions answered - Intubation Time Out Performed: Yes Sedative: Versed, Other (propofol) Mg Given: 8mg and 150mg respectively Paralytic: Succinylholine Laryngoscope: Glidescope ET Tube Size: 7.5 ET Tube Uncuffed: No (cuffed) ET Tube Secured at Depth: 25 ET Tube Secured Locarion: Lips ET Tube Placement Confirmation: Visualized Passing Through Cords, Breath Sounds Equal Bilaterally, No Breath Sounds Over Epigastrum, Confirmation w/Capnometry Patient Tolerated Procedure: Well Procedure Immediate Complications: None
--- NOTE | 2018-03-11 14:50 | CP.PCM.HP ---
History of Present Illness - History of Present Illness History of Present Illness: CC: Seizure. 42 y/o M, Hx of Seizure, alcohol abuse, brought to [facility], [place] after he run away from room 408 on 02/09/18 earlier in AM, Pt was admitted previously on 08/17 for seizure. Pt was brought back to hospital by his mother and admitted to ICU intubated/ sedated due to withdrawal Seizure, associated to ETOH abuse, DTs, severe agitation, placed on Propofol/Midazolan. Worsening symptoms: Altered mental status, Allucinations, delusions. Pt c/o of hearing voices that are speaking to him. Aggravated factor: Non compliance with medications. No: fever, chills, n/v/d, abdominal pain, CP, palpitations, SOB, cough, urinary symptom. CXR: No active pulmonary disease. Present on Admission - Present on Admission Any Indicators Present on Admission: No Review of Systems - Review of Systems Systems not reviewed;Unavailable: Acuity of Condition, Intubated - EENT Nose/Mouth/Throat: Other (negative) Past Patient History - Infectious Disease Hx of Infectious Diseases: None - Past Medical History & Family History Past Medical History?: Yes Pertinent Family History: DM, HTN - Past Social History Smoking Status: Never Smoked Alcohol: Other (abuse) Drugs: Denies Home Situation {Lives}: Alone - CARDIAC Hx Cardiac Disorders: No - PULMONARY Hx Respiratory Disorders: Yes Hx Asthma: Yes - NEUROLOGICAL Hx Neurological Disorder: Yes Hx Seizures: Yes - HEENT Hx HEENT Problems: No - RENAL Hx Chronic Kidney Disease: No - ENDOCRINE/METABOLIC Hx Endocrine Disorders: No - HEMATOLOGICAL/ONCOLOGICAL Hx Blood Disorders: No - INTEGUMENTARY Hx Dermatological Problems: No - MUSCULOSKELETAL/RHEUMATOLOGICAL Hx Musculoskeletal Disorders: Yes Hx Fractures: Yes (left arm) - GASTROINTESTINAL Hx Gastrointestinal Disorders: No - GENITOURINARY/GYNECOLOGICAL Hx Genitourinary Disorders: No - PSYCHIATRIC Hx Psychophysiologic Disorder: Yes Hx Anxiety: No Hx Depression: Yes - SURGICAL HISTORY Hx Surgeries: Yes Other/Comment: Left arm Sx - ANESTHESIA Hx Anesthesia: Yes Hx Anesthesia Reactions: No Hx Malignant Hyperthermia: No Meds Allergies/Adverse Reactions: Allergies Allergy/AdvReac Type Severity Reaction Status Date / Time No Known Allergies Allergy Verified 03/09/18 19:11 Physical Exam - Head Exam Head Exam: NORMAL INSPECTION - Eye Exam Additional comments: Pupils sluggish reactive to light - ENT Exam Additional comments: Intubated - Neck Exam Neck exam: Positive for: Normal Inspection - Respiratory Exam Respiratory Exam: Decreased Breath Sounds (b/l) - GI/Abdominal Exam GI & Abdominal Exam: Normal Bowel Sounds, Soft - Extremities Exam Extremities exam: Positive for: normal inspection - Neurological Exam Additional comments: Intubated, sedated, tremulosness b/l arms, SCD'S b/l lower extremities. - Psychiatric Exam Additional comments: Sedated - Skin Skin Exam: Warm Results - Vital Signs Recent Vital Signs: Last Vital Signs Temp 97.5 F L 03/11/18 07:26 Pulse 137 H 03/11/18 13:25 Resp 16 03/11/18 12:19 BP 140/87 03/11/18 12:19 Pulse Ox 100 03/11/18 12:19 reviewed Uma - Labs Result Diagrams: 03/13/18 16:31 03/13/18 16:31 Labs: Laboratory Results - last 24 hr 03/11/18 03/11/18 03/11/18 08:18 08:18 08:18 WBC 3.8 L D RBC 3.42 L Hgb 11.6 L Hct 33.7 L MCV 98.4 H MCH 33.8 H MCHC 34.3 RDW 12.9 Plt Count 109 L D MPV 11.8 H Neut % (Auto) 60.7 Lymph % (Auto) 23.5 Ada % (Auto) 14.5 H Eos % (Auto) 0.1 Baso % (Auto) 1.2 Neut # (Auto) 2.3 Lymph # (Auto) 0.9 L Ada # (Auto) 0.5 Eos # (Auto) 0.0 Baso # (Auto) 0.0 Sodium 137 Potassium 4.9 Chloride 97 L Carbon Dioxide 22 Anion Gap 23 H BUN 5 L Creatinine 0.6 L Est GFR ( Amer) > 60 Est GFR (Non-Af Amer) > 60 POC Glucose (mg/dL) Random Glucose 104 Calcium 9.3 Total Bilirubin 2.3 H AST 121 H D ALT 46 Alkaline Phosphatase 67 Total Protein 9.1 H Albumin 5.2 H Globulin 3.9 Albumin/Globulin Ratio 1.3 Urine Opiates Screen Urine Methadone Screen Ur Barbiturates Screen Phenytoin 6.6 L Ur Phencyclidine Scrn Ur Amphetamines Screen U Benzodiazepines Scrn U Oth Cocaine Metabols U Cannabinoids Screen Alcohol, Quantitative < 10 03/11/18 03/11/18 03/11/18 11:06 11:20 14:18 WBC RBC Hgb Hct MCV MCH MCHC RDW Plt Count MPV Neut % (Auto) Lymph % (Auto) Ada % (Auto) Eos % (Auto) Baso % (Auto) Neut # (Auto) Lymph # (Auto) Ada # (Auto) Eos # (Auto) Baso # (Auto) Sodium Potassium Chloride Carbon Dioxide Anion Gap BUN Creatinine Est GFR ( Amer) Est GFR (Non-Af Amer) POC Glucose (mg/dL) 121 H 125 H Random Glucose Calcium Total Bilirubin AST ALT Alkaline Phosphatase Total Protein Albumin Globulin Albumin/Globulin Ratio Urine Opiates Screen Negative Urine Methadone Screen Negative Ur Barbiturates Screen Negative Phenytoin Ur Phencyclidine Scrn Negative Ur Amphetamines Screen Negative U Benzodiazepines Scrn Negative U Oth Cocaine Metabols Negative U Cannabinoids Screen Negative Alcohol, Quantitative reviewed J.P. - Imaging and Cardiology Chest x-ray Status: Report reviewed by me (TomasaP.) Assessment & Plan (1) Seizure Status: Acute Priority: High (2) DTs (delirium tremens) Status: Acute Priority: High (3) Alcohol abuse with intoxication Status: Acute Priority: High (4) Hypokalemia Status: Acute Priority: High - Assessment and Plan (Free Text) Plan: Continue ventilatory support, Propofol, Dilantin, Keppra, Potassium Chl and rest of Tx. Neurology consult appreciated. - Date & Time Date: 03/11/18 Time: 13:00
[2018-03-11 15:58] LABS: ABG ALLEN TEST YES; ARTERIAL BLOOD GAS HCO3 25.5 mmol/L (21-28); ARTERIAL BLOOD GAS HEMOGLOBIN 10.3 g/dL (11.7-17.4); ARTERIAL BLOOD GAS O2 CAPACITY 15.9 mL/dL (16-24); ARTERIAL BLOOD GAS O2 CONTENT 15.9 ML/dL (15-23); ARTERIAL BLOOD GAS O2 SAT 100.1 % (95-98); ARTERIAL BLOOD GAS PCO2 29 mm/Hg (35-45); ARTERIAL BLOOD GAS PH 7.51 (7.35-7.45); ARTERIAL BLOOD GAS PO2 622 mm/Hg (80-100)
--- NOTE | 2018-03-11 17:17 | CP.PCM.CON ---
History of Present Illness - History of Present Illness History of Present Illness: Mr. Angulo is a 42-year-old man who is currently admitted for DT, status epilepticus, alcohol withdrawal, who required intubation/sedation. He left the hospital yesterday shortly after I saw him and resumed his home does of AEDs. He was brought back today with hallucinations, delusions, DTs and seizure. Currently, he is sedated/intubated. Past Patient History - Infectious Disease Hx of Infectious Diseases: None - Past Medical History & Family History Past Medical History?: Yes - Past Social History Smoking Status: Never Smoked - CARDIAC Hx Cardiac Disorders: No - PULMONARY Hx Asthma: Yes - NEUROLOGICAL Hx Seizures: Yes - HEENT Hx HEENT Problems: No - RENAL Hx Chronic Kidney Disease: No - ENDOCRINE/METABOLIC Hx Endocrine Disorders: No - HEMATOLOGICAL/ONCOLOGICAL Hx Blood Disorders: No - INTEGUMENTARY Hx Dermatological Problems: No - MUSCULOSKELETAL/RHEUMATOLOGICAL Hx Fractures: Yes (left arm) - GASTROINTESTINAL Hx Gastrointestinal Disorders: No - GENITOURINARY/GYNECOLOGICAL Hx Genitourinary Disorders: No - PSYCHIATRIC Hx Anxiety: No - SURGICAL HISTORY Hx Surgeries: Yes Other/Comment: Left arm Sx - ANESTHESIA Hx Anesthesia: Yes Hx Anesthesia Reactions: No Hx Malignant Hyperthermia: No Meds Allergies/Adverse Reactions: Allergies Allergy/AdvReac Type Severity Reaction Status Date / Time No Known Allergies Allergy Verified 03/09/18 19:11 - Medications Medications: Current Medications Lorazepam 100 mg/ Sodium (Chloride) 100 mls @ 3 mls/hr IVPB .Q24H SEUN; 3 MG/HR PRN Reason: Protocol Midazolam HCl 50 mg/ Dextrose 100 mls @ 4 mls/hr IV .Q24H ONE; 2 MG/HR PRN Reason: Protocol Stop: 03/12/18 13:10 Last Admin: 03/11/18 13:50 Dose: 2 mg/hr, 4 mls/hr Propofol (Diprivan) 1,000 mg in 100 mls @ 1.864 mls/hr IV .Q24H SEUN; 5 MCG/KG/ MIN PRN Reason: Protocol Stop: 03/12/18 13:13 Last Admin: 03/11/18 13:30 Dose: 5 mcg/kg/min, 1.864 mls/hr Multivitamins/Vitamin C 10 ml/Thiamine HCl 100 mg/ Folic Acid 1 mg/ Dextrose/ Sodium Chloride 1,011.2 mls @ 75 mls/hr IV .[id number] ONE Stop: 03/12/18 21:28 Multivitamins/Vitamin C 10 ml/Thiamine HCl 100 mg/ Folic Acid 1 mg/ Dextrose/ Sodium Chloride 1,011.2 mls @ 75 mls/hr IV .[id number] ONE Stop: 03/13/18 21:28 Sodium Chloride (Sodium Chloride 0.9%) 1,000 mls @ 75 mls/hr IV .[id number] SEUN Stop: 03/12/18 13:19 Levetiracetam 500 mg/ Sodium (Chloride) 105 mls @ 210 mls/hr IVPB Q12 SEUN Phenytoin (Dilantin) 100 mg IVP Q8 SEUN Results - Vital Signs Recent Vital Signs: Last Vital Signs Temp 97.5 F L 03/11/18 07:26 Pulse 137 H 03/11/18 13:25 Resp 16 03/11/18 12:19 BP 140/87 03/11/18 12:19 Pulse Ox 100 03/11/18 12:19 - Labs Result Diagrams: 03/11/18 08:18 03/11/18 08:18 Labs: Laboratory Results - last 24 hr 03/11/18 03/11/18 03/11/18 08:18 08:18 08:18 WBC 3.8 L D RBC 3.42 L Hgb 11.6 L Hct 33.7 L MCV 98.4 H MCH 33.8 H MCHC 34.3 RDW 12.9 Plt Count 109 L D MPV 11.8 H Neut % (Auto) 60.7 Lymph % (Auto) 23.5 [place] % (Auto) 14.5 H Eos % (Auto) 0.1 Baso % (Auto) 1.2 Neut # (Auto) 2.3 Lymph # (Auto) 0.9 L [place] # (Auto) 0.5 Eos # (Auto) 0.0 Baso # (Auto) 0.0 pCO2 pO2 HCO3 ABG pH ABG Total CO2 ABG O2 Saturation ABG O2 Content ABG Base Excess ABG Hemoglobin ABG Carboxyhemoglobin POC ABG HHb (Measured) ABG Methemoglobin ABG O2 Capacity Octavio Test A-a O2 Difference Hgb O2 Saturation Vent Mode Mechanical Rate FiO2 Tidal Volume PEEP Sodium 137 Potassium 4.9 Chloride 97 L Carbon Dioxide 22 Anion Gap 23 H BUN 5 L Creatinine 0.6 L Est GFR ( Amer) > 60 Est GFR (Non-Af Amer) > 60 POC Glucose (mg/dL) Random Glucose 104 Calcium 9.3 Total Bilirubin 2.3 H AST 121 H D ALT 46 Alkaline Phosphatase 67 Total Protein 9.1 H Albumin 5.2 H Globulin 3.9 Albumin/Globulin Ratio 1.3 Urine Opiates Screen Urine Methadone Screen Ur Barbiturates Screen Phenytoin 6.6 L Ur Phencyclidine Scrn Ur Amphetamines Screen U Benzodiazepines Scrn U Oth Cocaine Metabols U Cannabinoids Screen Alcohol, Quantitative < 10 03/11/18 03/11/18 03/11/18 11:06 11:20 14:18 WBC RBC Hgb Hct MCV MCH MCHC RDW Plt Count MPV Neut % (Auto) Lymph % (Auto) [place] % (Auto) Eos % (Auto) Baso % (Auto) Neut # (Auto) Lymph # (Auto) [place] # (Auto) Eos # (Auto) Baso # (Auto) pCO2 pO2 HCO3 ABG pH ABG Total CO2 ABG O2 Saturation ABG O2 Content ABG Base Excess ABG Hemoglobin ABG Carboxyhemoglobin POC ABG HHb (Measured) ABG Methemoglobin ABG O2 Capacity Octavio Test A-a O2 Difference Hgb O2 Saturation Vent Mode Mechanical Rate FiO2 Tidal Volume PEEP Sodium Potassium Chloride Carbon Dioxide Anion Gap BUN Creatinine Est GFR ( Amer) Est GFR (Non-Af Amer) POC Glucose (mg/dL) 121 H 125 H Random Glucose Calcium Total Bilirubin AST ALT Alkaline Phosphatase Total Protein Albumin Globulin Albumin/Globulin Ratio Urine Opiates Screen Negative Urine Methadone Screen Negative Ur Barbiturates Screen Negative Phenytoin Ur Phencyclidine Scrn Negative Ur Amphetamines Screen Negative U Benzodiazepines Scrn Negative U Oth Cocaine Metabols Negative U Cannabinoids Screen Negative Alcohol, Quantitative 03/11/18 15:50 WBC RBC Hgb Hct MCV MCH MCHC RDW Plt Count MPV Neut % (Auto) Lymph % (Auto) [place] % (Auto) Eos % (Auto) Baso % (Auto) Neut # (Auto) Lymph # (Auto) [place] # (Auto) Eos # (Auto) Baso # (Auto) pCO2 29 L pO2 622 H HCO3 25.5 ABG pH 7.51 H ABG Total CO2 24.0 ABG O2 Saturation 100.1 H ABG O2 Content 15.9 ABG Base Excess 0.7 ABG Hemoglobin 10.3 L ABG Carboxyhemoglobin 1.1 POC ABG HHb (Measured) -0.1 L ABG Methemoglobin 1.5 ABG O2 Capacity 15.9 L Octavio Test Yes A-a O2 Difference 55.0 Hgb O2 Saturation 97.5 Vent Mode Prvc/ac Mechanical Rate 12 FiO2 100.0 Tidal Volume 400 PEEP 5 Sodium Potassium Chloride Carbon Dioxide Anion Gap BUN Creatinine Est GFR ( Amer) Est GFR (Non-Af Amer) POC Glucose (mg/dL) Random Glucose Calcium Total Bilirubin AST ALT Alkaline Phosphatase Total Protein Albumin Globulin Albumin/Globulin Ratio Urine Opiates Screen Urine Methadone Screen Ur Barbiturates Screen Phenytoin Ur Phencyclidine Scrn Ur Amphetamines Screen U Benzodiazepines Scrn U Oth Cocaine Metabols U Cannabinoids Screen Alcohol, Quantitative
[2018-03-11] MEDS: Phenytoin 250 mg/5 ml Inj IVP SCH (18:44)
[2018-03-11] MEDS: Midazolam 5 MG/ML 50 MG in Dextrose 5% In Water 90 ML IV ONE (19:30)
[2018-03-11] MEDS: Acetaminophen 650mg/20.3ml solution UD PO PRN (21:01)
[2018-03-11] MEDS: levETIRAcetam 500 MG in Sodium Chloride 0.9% 100 ML IVPB SCH (21:04)
[2018-03-11 21:28] LABS: URINE BACTERIA RARE (<OCC); URINE BILIRUBIN NEGATIVE (NEGATIVE); URINE BLOOD NEGATIVE (NEGATIVE); URINE CLARITY CLEAR (Clear); URINE COLOR YELLOW (YELLOW); URINE GLUCOSE (UA) 150 mg/dL (Normal); URINE LEUKOCYTE ESTERASE NEG Leu/uL (Negative); URINE PROTEIN NEGATIVE (NEGATIVE); URINE UROBILINOGEN 0.2-1.0 mg/dL (0.2-1.0)
[2018-03-12] MEDS: Midazolam 5 MG/ML 50 MG in Dextrose 5% In Water 90 ML IV ONE ×2 (00:07→05:15)
[2018-03-12] MEDS: Phenytoin 250 mg/5 ml Inj IVP SCH ×3 (00:10→16:38)
[2018-03-12 02:05] VITALS: BMI 18.3
[2018-03-12] MEDS: Propofol 10 mg/ml 1,000 MG/100 ML VIAL IV SCH (02:09)
[2018-03-12] MEDS: Acetaminophen 650mg/20.3ml solution UD PO PRN (04:12)
[2018-03-12 04:29] LABS: ABG ALLEN TEST YES; ARTERIAL BLOOD GAS HCO3 27.7 mmol/L (21-28); ARTERIAL BLOOD GAS O2 SAT 100.4 % (95-98); ARTERIAL BLOOD GAS PCO2 31 mm/Hg (35-45); ARTERIAL BLOOD GAS PH 7.53 (7.35-7.45); ARTERIAL BLOOD GAS PO2 332 mm/Hg (80-100); ARTERIAL BLOOD GAS TCO2 26.9 mmol/L (22-28)
[2018-03-12] MEDS ORDERED: Sodium Chloride 3% for Inhalation 4 ML VIAL.NEB IH PRN (04:45)
[2018-03-12 04:58] LABS: BASO % 0.3 % (0.0-2.0); HEMOGLOBIN 10.9 g/dL (12.0-18.0); LYMPH # 0.4 K/uL (1.0-4.3); LYMPH % 5.5 % (20.0-40.0); MEAN CELL VOLUME 98.5 fl (80.0-94.0); MEAN CORPUSCULAR HEMOGLOBIN 33.5 pg (27.0-31.0); MEAN PLATELET VOLUME 9.2 fl (7.2-11.7); MONO # 0.9 K/uL (0.0-0.8); MONO % 11.7 % (0.0-10.0); NEUT # 6.3 K/uL (1.8-7.0); NEUT % 82.5 % (50.0-75.0); RBC 3.26 Mil/uL (4.40-5.90); RED CELL DISTRIBUTION WIDTH 12.9 % (11.5-14.5); WHITE BLOOD COUNT 7.7 K/uL (4.8-10.8)
[2018-03-12 05:20] LABS: ALB/GLOB RATIO 1.3 (1.0-2.1); ALBUMIN 4.2 g/dL (3.5-5.0); ALT/SGPT 48 U/L (21-72); AST/SGOT 72 U/L (17-59); BLOOD UREA NITROGEN < 2 mg/dl (9-20); CALCIUM 8.4 mg/dL (8.4-10.2); GFR AFRICAN-AMERICAN > 60; GFR NON-AFRICAN AMERICAN > 60
[2018-03-12] MEDS ORDERED: Magnesium Sulfate 2 gm/50 ml 2 GM/50 ML BAG IVPB ONE (05:32)
[2018-03-12] MEDS ORDERED: Potassium Chl 20 mEq in NS 1,000 ML IV SCH (05:45)
[2018-03-12 06:01] LABS: LYMPHOCYTE 7 % (20-50); MONOCYTE 8 % (0-10); NEUTROPHIL 85 % (42-75); TOTAL CELLS COUNTED 100
[2018-03-12 06:02] LABS: PLATELET ESTIMATE DECREASED (NORMAL)
[2018-03-12 06:03] LABS: ANISOCYTOSIS SLIGHT; OVALOCYTES SLIGHT; POIKILOCYTOSIS SLIGHT
[2018-03-12] MEDS: Potassium Chloride 20 mEq 100 ML IVPB SCH ×2 (06:03→08:23)
[2018-03-12] MEDS ORDERED: Sodium Chloride 0.9% 500 ML IV ONE (07:06)
[2018-03-12 07:16] LABS: PLATELET COUNT 59 K/uL (130-400)
--- NOTE | 2018-03-12 07:52 | RAD ---
HISTORY: s/p intubation and ogt COMPARISON: No prior. FINDINGS: LUNGS: No active pulmonary disease. PLEURA: No significant pleural effusion identified, no pneumothorax apparent. CARDIOVASCULAR: Normal. OSSEOUS STRUCTURES: No significant abnormalities. VISUALIZED UPPER ABDOMEN: Normal. OTHER FINDINGS: ETT above the carinal. NG tube coiled in the esophagus. IMPRESSION: As above.
--- NOTE | 2018-03-12 07:53 | RAD ---
HISTORY: re-evluated COMPARISON: 03/11/2018 FINDINGS: LUNGS: No active pulmonary disease. PLEURA: No significant pleural effusion identified, no pneumothorax apparent. CARDIOVASCULAR: Normal. OSSEOUS STRUCTURES: No significant abnormalities. VISUALIZED UPPER ABDOMEN: Normal. OTHER FINDINGS: ETT above the adriana. IMPRESSION: No active disease.
[2018-03-12] MEDS ORDERED: Multivitamin (MVI) 10 ML, Thiamine 100 MG, Folic Acid 1 MG in Dextrose 5%/0.45% NS 1,00... IV ONE (08:00)
--- NOTE | 2018-03-12 08:00 | RAD ---
HISTORY: ogt replaced COMPARISON: No prior. FINDINGS: LUNGS: No active pulmonary disease. PLEURA: No significant pleural effusion identified, no pneumothorax apparent. CARDIOVASCULAR: Normal. OSSEOUS STRUCTURES: No significant abnormalities. VISUALIZED UPPER ABDOMEN: Normal. OTHER FINDINGS: ETT above the adriana. IMPRESSION: No active disease.
[2018-03-12] MEDS: levETIRAcetam 500 MG in Sodium Chloride 0.9% 100 ML IVPB SCH (08:18)
--- NOTE | 2018-03-12 08:42 | CP.PCM.PN ---
Subjective - Date & Time of Evaluation Date of Evaluation: 03/12/18 Time of Evaluation: 08:39 - Subjective Subjective: Mr. Angulo was seen and examined at the bedside in ICU. He remains on mechanical ventilator on PRVC mode, bteathing over the vent. resp. set rate. His pupils are sluggishly reactive to light, miosis, + corneal, and + gag reflex. He is on midazolam and Propofol for sedation due to severe agitation and restlessness. He has bilateral lower extremities SCD's, on bilateral wrist restraints for patient safety. He had episode of febrile episode from last night , t-max 101.5. Objective - Vital Signs/Intake and Output Vital Signs (last 24 hours): Temp Pulse Resp BP Pulse Ox 100.8 F H 102 H 16 89/61 L 100 03/12/18 05:12 03/12/18 07:05 03/12/18 07:05 03/12/18 07:05 03/12/18 07:05 Intake and Output: 03/12/18 03/12/18 06:59 18:59 Intake Total 1465 Output Total 1600 Balance -135 - Medications Medications: Current Medications Acetaminophen (Tylenol 650mg/20.3ml Solution Ud) 650 mg PO Q4 PRN PRN Reason: Temperature Last Admin: 03/12/18 04:12 Dose: 650 mg Lorazepam 100 mg/ Sodium (Chloride) 100 mls @ 3 mls/hr IVPB .Q24H SEUN; 3 MG/HR PRN Reason: Protocol Midazolam HCl 50 mg/ Dextrose 100 mls @ 4 mls/hr IV .Q24H ONE; 2 MG/HR PRN Reason: Protocol Stop: 03/12/18 13:10 Last Titration: 03/11/18 19:30 Dose: Infused Propofol (Diprivan) 1,000 mg in 100 mls @ 1.864 mls/hr IV .Q24H SEUN; 5 MCG/KG/ MIN PRN Reason: Protocol Stop: 03/12/18 13:13 Last Titration: 03/12/18 06:45 Dose: 30 mcg/kg/min, 11.186 mls/hr Multivitamins/Vitamin C 10 ml/Thiamine HCl 100 mg/ Folic Acid 1 mg/ Dextrose/ Sodium Chloride 1,011.2 mls @ 75 mls/hr IV .[id number] ONE Stop: 03/12/18 21:28 Multivitamins/Vitamin C 10 ml/Thiamine HCl 100 mg/ Folic Acid 1 mg/ Dextrose/ Sodium Chloride 1,011.2 mls @ 75 mls/hr IV .[id number] ONE Stop: 03/13/18 21:28 Potassium Chloride (Potassium Chloride 20 Meq/100 Ml) 100 mls @ 50 mls/hr IVPB Q2 SEUN Stop: 03/12/18 09:59 Last Admin: 03/12/18 08:23 Dose: 50 mls/hr Potassium Chloride/Sodium Chloride (Potassium Chl 20 Meq In Ns) 1,000 mls @ 75 mls/hr IV .[id number] SEUN Stop: 03/13/18 05:36 Last Admin: 03/12/18 06:02 Dose: 75 mls/hr Levetiracetam 750 mg/ Sodium (Chloride) 107.5 mls @ 215 mls/hr IVPB Q12 SEUN Phenytoin (Dilantin) 100 mg IVP Q8 SEUN Last Admin: 03/12/18 08:16 Dose: 100 mg - Labs Labs: 03/12/18 04:30 03/12/18 04:30 - Constitutional Appears: No Acute Distress - Head Exam Head Exam: NORMAL INSPECTION - Eye Exam Pupil Exam: Miosis, PERRL - Neurological Exam Neuro motor strength exam: Left Upper Extremity: 3, Right Upper Extremity: 3, Left Lower Extremity: 3, Right Lower Extremity: 3 Additional comments: GCS- 4T, restless and agitated without sedation. Assessment and Plan (1) Seizure Assessment & Plan: Case discussed with Dr. Wilburn, continue all current medical regimen. Recommend to increase keppra from 500 mg IV Q 12 to 750 mg IV Q 12. Recommend to repeat dilantin level in am. Pending CT scan of the head and EEG. Status: Acute
--- NOTE | 2018-03-12 13:40 | CP.CCUPN ---
CCU Subjective - Physician Review Events Since Last Encounter (Free Text): 03/12/18 13:37 sedated on vent. CCU Objective - Vital Signs / Intake & Output Vital Signs (Last 4 hours): Vital Signs Temp Pulse Resp BP Pulse Ox 03/12/18 13:00 110 H 17 112/92 H 100 03/12/18 12:00 99.5 F 116 H 17 99/76 L 03/12/18 11:05 100 03/12/18 11:00 112 H 17 99/75 L 100 03/12/18 10:00 108 H 13 100/60 100 Intake and Output (Last 8hrs): Intake & Output 03/11/18 03/12/18 03/12/18 22:59 06:59 14:59 Intake Total 1301 964 995 Output Total 1700 1200 400 Balance -399 -236 595 Weight 110 lb Intake: IV 1301 964 725 Intake, Piggyback 270 Oral 0 Output: Urine 1700 1200 400 Urethral (David) 1700 1200 400 - Physical Exam Head: Positive for: Atraumatic, Normocephalic Pupils: Positive for: PERRL Extroacular Muscles: Positive for: EOMI Conjunctiva: Positive for: Normal Mouth: Positive for: Moist Mucous Membranes Neck: Positive for: Normal Range of Motion Respiratory/Chest: Positive for: Clear to Auscultation, Good Air Exchange Cardiovascular: Positive for: Regular Rate and Rhythm, Normal S1, S2 Upper Extremity: Positive for: Normal Inspection Lower Extremity: Positive for: Normal Inspection Psychiatric: Positive for: Other (sedated) - Medications Active Medications: Active Medications Generic Name Dose Route Start Last Admin Trade Name Freq PRN Reason Stop Dose Admin Acetaminophen 650 mg 03/11/18 20:31 03/12/18 04:12 Tylenol 650mg/20.3ml Solution Ud PO 650 mg Q4 PRN Administration Temperature Lorazepam 100 mg/ Sodium 100 mls @ 3 mls/hr 03/11/18 11:45 Chloride IVPB .Q24H SEUN Protocol 3 MG/HR Multivitamins/Vitamin C 10 ml/ 1,011.2 mls @ 75 mls/hr 03/12/18 08:00 11:36 Thiamine HCl 100 mg/ Folic IV 03/12/18 21:28 75 mls/hr Acid 1 mg/ Dextrose/Sodium .[id number] ONE Administration Chloride Multivitamins/Vitamin C 10 ml/ 1,011.2 mls @ 75 mls/hr 03/13/18 08:00 Thiamine HCl 100 mg/ Folic IV 03/13/18 21:28 Acid 1 mg/ Dextrose/Sodium .[id number] ONE Chloride Potassium Chloride/Sodium Chloride 1,000 mls @ 75 mls/hr 03/12/18 05:45 03/12 06:02 Potassium Chl 20 Meq In Ns IV 03/13/18 05:36 75 mls/hr .[id number] SEUN Administration Levetiracetam 750 mg/ Sodium 107.5 mls @ 215 mls/hr 03/12/18 21:00 Chloride IVPB Q12 SEUN Phenytoin 100 mg 03/11/18 17:00 03/12/18 08:16 Dilantin IVP 100 mg Q8 SEUN Administration - Patient Studies Lab Studies: Lab Studies 03/12/18 03/12/18 03/12/18 Range/Units 04:30 04:30 04:00 WBC 7.7 D (4.8-10.8) K/uL RBC 3.26 L (4.40-5.90) Mil/uL Hgb 10.9 L (12.0-18.0) g/dL Hct 32.1 L (35.0-51.0) % MCV 98.5 H (80.0-94.0) fl MCH 33.5 H (27.0-31.0) pg MCHC 34.0 (33.0-37.0) g/dL RDW 12.9 (11.5-14.5) % Plt Count 59 L D (130-400) K/uL MPV 9.2 (7.2-11.7) fl Neut % (Auto) 82.5 H (50.0-75.0) % Lymph % (Auto) 5.5 L (20.0-40.0) % [place] % (Auto) 11.7 H (0.0-10.0) % Eos % (Auto) 0.0 (0.0-4.0) % Baso % (Auto) 0.3 (0.0-2.0) % Neut # (Auto) 6.3 (1.8-7.0) K/uL Lymph # (Auto) 0.4 L (1.0-4.3) K/uL [place] # (Auto) 0.9 H (0.0-0.8) K/uL Eos # (Auto) 0.0 (0.0-0.7) K/uL Baso # (Auto) 0.0 (0.0-0.2) K/uL Neutrophils % (Manual) 85 H (42-75) % Lymphocytes % (Manual) 7 L (20-50) % Monocytes % (Manual) 8 (0-10) % Platelet Estimate Decreased L (NORMAL) Poikilocytosis (manual Slight Anisocytosis (manual) Slight Ovalocytes Slight pCO2 31 L (35-45) mm/Hg pO2 332 H (80-100) mm/Hg HCO3 27.7 (21-28) mmol/L ABG pH 7.53 H (7.35-7.45) ABG Total CO2 26.9 (22-28) mmol/L ABG O2 Saturation 100.4 H (95-98) % ABG O2 Content (15-23) ML/dL ABG Base Excess 3.5 H (-2.0-3.0) mmol/L ABG Hemoglobin (11.7-17.4) g/dL ABG Carboxyhemoglobin (0.5-1.5) % POC ABG HHb (Measured) (0.0-5.0) % ABG Methemoglobin (0.0-3.0) % ABG O2 Capacity (16-24) mL/dL Octavio Test Yes ABG Potassium 2.2 L* (3.6-5.2) mmol/L A-a O2 Difference 57.0 mm/Hg Hgb O2 Saturation (95.0-98.0) % Sodium 135 133.0 (132-148) mmol/L Chloride 96 L 101.0 (98-107) mmol/L Glucose 154 H (75-110) mg/dL Lactate 1.1 (0.7-2.1) mmol/L Vent Mode A/c Mechanical Rate 12 FiO2 60.0 % Tidal Volume 400 PEEP 5 Crit Value Called To Dr kate aviles Crit Value Called By Jim Crit Value Read Back Y Blood Gas Notified Time 429 Potassium 2.3 L* D (3.6-5.0) MMOL/L Carbon Dioxide 24 (22-30) mmol/L Anion Gap 17 (10-20) BUN < 2 L (9-20) mg/dl Creatinine 0.5 L (0.8-1.5) mg/dl Est GFR ( Amer) > 60 Est GFR (Non-Af Amer) > 60 POC Glucose (mg/dL) (65-110) mg/dL Random Glucose 161 H (75-110) mg/dL Calcium 8.4 (8.4-10.2) mg/dL Phosphorus 3.9 (2.5-4.5) mg/dl Magnesium 1.2 L (1.6-2.3) MG/DL Total Bilirubin 1.0 (0.2-1.3) mg/dl AST 72 H D (17-59) U/L ALT 48 (21-72) U/L Alkaline Phosphatase 62 (38-126) U/L Total Protein 7.5 (6.3-8.2) G/DL Albumin 4.2 (3.5-5.0) g/dL Globulin 3.3 (2.2-3.9) gm/dL Albumin/Globulin Ratio 1.3 (1.0-2.1) Arterial Blood Potassium 2.2 L* (3.6-5.2) mmol/L Urine Color (YELLOW) Urine Clarity (Clear) Urine pH (5.0-8.0) Ur Specific [place] (1.003-1.030) Urine Protein (NEGATIVE) mg/dL Urine Glucose (UA) (Normal) mg/dL Urine Ketones (NEGATIVE) mg/dL Urine Blood (NEGATIVE) Urine Nitrate (NEGATIVE) Urine Bilirubin (NEGATIVE) Urine Urobilinogen (0.2-1.0) mg/dL Ur Leukocyte Esterase (Negative) Jm/uL Urine RBC (Auto) (0-3) /hpf Urine Microscopic WBC (0-5) /hpf Urine Bacteria (<OCC) 03/11/18 03/11/18 03/11/18 Range/Units 21:15 15:50 14:18 WBC (4.8-10.8) K/uL RBC (4.40-5.90) Mil/uL Hgb (12.0-18.0) g/dL Hct (35.0-51.0) % MCV (80.0-94.0) fl MCH (27.0-31.0) pg MCHC (33.0-37.0) g/dL RDW (11.5-14.5) % Plt Count (130-400) K/uL MPV (7.2-11.7) fl Neut % (Auto) (50.0-75.0) % Lymph % (Auto) (20.0-40.0) % [place] % (Auto) (0.0-10.0) % Eos % (Auto) (0.0-4.0) % Baso % (Auto) (0.0-2.0) % Neut # (Auto) (1.8-7.0) K/uL Lymph # (Auto) (1.0-4.3) K/uL [place] # (Auto) (0.0-0.8) K/uL Eos # (Auto) (0.0-0.7) K/uL Baso # (Auto) (0.0-0.2) K/uL Neutrophils % (Manual) (42-75) % Lymphocytes % (Manual) (20-50) % Monocytes % (Manual) (0-10) % Platelet Estimate (NORMAL) Poikilocytosis (manual Anisocytosis (manual) Ovalocytes pCO2 29 L (35-45) mm/Hg pO2 622 H (80-100) mm/Hg HCO3 25.5 (21-28) mmol/L ABG pH 7.51 H (7.35-7.45) ABG Total CO2 24.0 (22-28) mmol/L ABG O2 Saturation 100.1 H (95-98) % ABG O2 Content 15.9 (15-23) ML/dL ABG Base Excess 0.7 (-2.0-3.0) mmol/L ABG Hemoglobin 10.3 L (11.7-17.4) g/dL ABG Carboxyhemoglobin 1.1 (0.5-1.5) % POC ABG HHb (Measured) -0.1 L (0.0-5.0) % ABG Methemoglobin 1.5 (0.0-3.0) % ABG O2 Capacity 15.9 L (16-24) mL/dL Octavio Test Yes ABG Potassium (3.6-5.2) mmol/L A-a O2 Difference 55.0 mm/Hg Hgb O2 Saturation 97.5 (95.0-98.0) % Sodium (132-148) mmol/L Chloride (98-107) mmol/L Glucose (75-110) mg/dL Lactate (0.7-2.1) mmol/L Vent Mode Prvc/ac Mechanical Rate 12 FiO2 100.0 % Tidal Volume 400 PEEP 5 Crit Value Called To Crit Value Called By Crit Value Read Back Blood Gas Notified Time Potassium (3.6-5.0) MMOL/L Carbon Dioxide (22-30) mmol/L Anion Gap (10-20) BUN (9-20) mg/dl Creatinine (0.8-1.5) mg/dl Est GFR ( Amer) Est GFR (Non-Af Amer) POC Glucose (mg/dL) 125 H (65-110) mg/dL Random Glucose (75-110) mg/dL Calcium (8.4-10.2) mg/dL Phosphorus (2.5-4.5) mg/dl Magnesium (1.6-2.3) MG/DL Total Bilirubin (0.2-1.3) mg/dl AST (17-59) U/L ALT (21-72) U/L Alkaline Phosphatase (38-126) U/L Total Protein (6.3-8.2) G/DL Albumin (3.5-5.0) g/dL Globulin (2.2-3.9) gm/dL Albumin/Globulin Ratio (1.0-2.1) Arterial Blood Potassium (3.6-5.2) mmol/L Urine Color Yellow (YELLOW) Urine Clarity Clear (Clear) Urine pH 6.0 (5.0-8.0) Ur Specific [place] 1.006 (1.003-1.030) Urine Protein Negative (NEGATIVE) mg/dL Urine Glucose (UA) 150 (Normal) mg/dL Urine Ketones Trace (NEGATIVE) mg/dL Urine Blood Negative (NEGATIVE) Urine Nitrate Negative (NEGATIVE) Urine Bilirubin Negative (NEGATIVE) Urine Urobilinogen 0.2-1.0 (0.2-1.0) mg/dL Ur Leukocyte Esterase Neg (Negative) Jm/uL Urine RBC (Auto) 1 (0-3) /hpf Urine Microscopic WBC 2 (0-5) /hpf Urine Bacteria Rare (<OCC) Laboratory Results - last 24 hr 03/11/18 03/11/18 03/11/18 14:18 15:50 21:15 WBC RBC Hgb Hct MCV MCH MCHC RDW Plt Count MPV Neut % (Auto) Lymph % (Auto) [place] % (Auto) Eos % (Auto) Baso % (Auto) Neut # (Auto) Lymph # (Auto) [place] # (Auto) Eos # (Auto) Baso # (Auto) Neutrophils % (Manual) Lymphocytes % (Manual) Monocytes % (Manual) Platelet Estimate Poikilocytosis (manual Anisocytosis (manual) Ovalocytes pCO2 29 L pO2 622 H HCO3 25.5 ABG pH 7.51 H ABG Total CO2 24.0 ABG O2 Saturation 100.1 H ABG O2 Content 15.9 ABG Base Excess 0.7 ABG Hemoglobin 10.3 L ABG Carboxyhemoglobin 1.1 POC ABG HHb (Measured) -0.1 L ABG Methemoglobin 1.5 ABG O2 Capacity 15.9 L Octavio Test Yes ABG Potassium A-a O2 Difference 55.0 Hgb O2 Saturation 97.5 Sodium Chloride Glucose Lactate Vent Mode Prvc/ac Mechanical Rate 12 FiO2 100.0 Tidal Volume 400 PEEP 5 Crit Value Called To Crit Value Called By Crit Value Read Back Blood Gas Notified Time Potassium Carbon Dioxide Anion Gap BUN Creatinine Est GFR ( Amer) Est GFR (Non-Af Amer) POC Glucose (mg/dL) 125 H Random Glucose Calcium Phosphorus Magnesium Total Bilirubin AST ALT Alkaline Phosphatase Total Protein Albumin Globulin Albumin/Globulin Ratio Arterial Blood Potassium Urine Color Yellow Urine Clarity Clear Urine pH 6.0 Ur Specific [place] 1.006 Urine Protein Negative Urine Glucose (UA) 150 Urine Ketones Trace Urine Blood Negative Urine Nitrate Negative Urine Bilirubin Negative Urine Urobilinogen 0.2-1.0 Ur Leukocyte Esterase Neg Urine RBC (Auto) 1 Urine Microscopic WBC 2 Urine Bacteria Rare 03/12/18 03/12/18 03/12/18 04:00 04:30 04:30 WBC 7.7 D RBC 3.26 L Hgb 10.9 L Hct 32.1 L MCV 98.5 H MCH 33.5 H MCHC 34.0 RDW 12.9 Plt Count 59 L D MPV 9.2 Neut % (Auto) 82.5 H Lymph % (Auto) 5.5 L [place] % (Auto) 11.7 H Eos % (Auto) 0.0 Baso % (Auto) 0.3 Neut # (Auto) 6.3 Lymph # (Auto) 0.4 L [place] # (Auto) 0.9 H Eos # (Auto) 0.0 Baso # (Auto) 0.0 Neutrophils % (Manual) 85 H Lymphocytes % (Manual) 7 L Monocytes % (Manual) 8 Platelet Estimate Decreased L Poikilocytosis (manual Slight Anisocytosis (manual) Slight Ovalocytes Slight pCO2 31 L pO2 332 H HCO3 27.7 ABG pH 7.53 H ABG Total CO2 26.9 ABG O2 Saturation 100.4 H ABG O2 Content ABG Base Excess 3.5 H ABG Hemoglobin ABG Carboxyhemoglobin POC ABG HHb (Measured) ABG Methemoglobin ABG O2 Capacity Octavio Test Yes ABG Potassium 2.2 L* A-a O2 Difference 57.0 Hgb O2 Saturation Sodium 133.0 135 Chloride 101.0 96 L Glucose 154 H Lactate 1.1 Vent Mode A/c Mechanical Rate 12 FiO2 60.0 Tidal Volume 400 PEEP 5 Crit Value Called To Dr kate aviles Crit Value Called By Crit Value Read Back Y Blood Gas Notified Time 429 Potassium 2.3 L* D Carbon Dioxide 24 Anion Gap 17 BUN < 2 L Creatinine 0.5 L Est GFR ( Amer) > 60 Est GFR (Non-Af Amer) > 60 POC Glucose (mg/dL) Random Glucose 161 H Calcium 8.4 Phosphorus 3.9 Magnesium 1.2 L Total Bilirubin 1.0 AST 72 H D ALT 48 Alkaline Phosphatase 62 Total Protein 7.5 Albumin 4.2 Globulin 3.3 Albumin/Globulin Ratio 1.3 Arterial Blood Potassium 2.2 L* Urine Color Urine Clarity Urine pH Ur Specific [place] Urine Protein Urine Glucose (UA) Urine Ketones Urine Blood Urine Nitrate Urine Bilirubin Urine Urobilinogen Ur Leukocyte Esterase Urine RBC (Auto) Urine Microscopic WBC Urine Bacteria Fingerstick Blood Sugar Results: 121 Review of Systems - Review of Systems Systems not reviewed;Unavailable: Intubated Critical Care Progress Note - Ventilator Checklist Head of Bed 30 Degrees: Yes Daily Sedation Vacation: Yes Daily Assessment of Readiness to Wean: Yes Daily Spontaneous Breathing Trial: Yes PUD Prophalyxis: Yes DVT Prophylaxis: Yes - Nutrition Nutrition: Nutrition Category Date Time Status NPO Diet [DIET] Diets 03/12/18 Lunch Active Assessment/Plan (1) DTs (delirium tremens) Assessment and plan: 42yo M. PMHx seizure disorder, ETOH abuse. p/w DT's. Neuro: sedated with propofol gtt and versed gtt, titrating down slowly. Seizure disorder continued both Dilantin and Keppra. Pulm: intubated for sedation, on PRVC. CV: hemodynamically stable. Hem: no acute issues Renal: Banana Bag, alternating with NS@75 Endo: no acute issues GI: NPO, Jevity@20, goal 50, free wter flushes 100ml q8h. ID: spiked fever, pancultured, follow up. DVT proph - lovenox GI proph - protonix david for strict I/O's during acute illness Code status - full code Critical Care Time 35 minutes. Multi-disciplinary rounds were performed with house staff, nursing, speech therapy, respiratory therapy, pharmacy and nutrition with integrated input from the primary team/attending and other consulting services. The documented time is cumulative and includes review of patient data/exams/labs/chart review and examination of the patient on rounds and throughout the day; time is exclusive of any procedures or teaching time. Current Visit: Yes Status: Acute
[2018-03-12] MEDS ORDERED: Midazolam 50 MG in Dextrose 5% In Water 50 ML IV ONE ×2 (15:49→22:04)
[2018-03-12] MEDS ORDERED: Propofol 10 mg/ml 1,000 MG/100 ML VIAL IV SCH ×2 (16:00→20:15)
--- NOTE | 2018-03-12 16:34 | CP.PCM.PN ---
Subjective - Date & Time of Evaluation Date of Evaluation: 03/12/18 Time of Evaluation: 16:00 - Subjective Subjective: F/U Seizure No A/D, intubated, sedated. Objective - Vital Signs/Intake and Output Vital Signs (last 24 hours): Temp Pulse Resp BP Pulse Ox 99.5 F 110 H 17 112/92 H 100 03/12/18 12:00 03/12/18 13:00 03/12/18 13:00 03/12/18 13:00 03/12/18 13:00 Intake and Output: 03/12/18 03/12/18 06:59 18:59 Intake Total 1465 995 Output Total 1600 400 Balance -135 595 - Medications Medications: Current Medications Acetaminophen (Tylenol 650mg/20.3ml Solution Ud) 650 mg PO Q4 PRN PRN Reason: Temperature Last Admin: 03/12/18 04:12 Dose: 650 mg Multivitamins/Vitamin C 10 ml/Thiamine HCl 100 mg/ Folic Acid 1 mg/ Dextrose/ Sodium Chloride 1,011.2 mls @ 75 mls/hr IV .[id number] ONE Stop: 03/12/18 21:28 Last Admin: 03/12/18 11:36 Dose: 75 mls/hr Multivitamins/Vitamin C 10 ml/Thiamine HCl 100 mg/ Folic Acid 1 mg/ Dextrose/ Sodium Chloride 1,011.2 mls @ 75 mls/hr IV .[id number] ONE Stop: 03/13/18 21:28 Potassium Chloride/Sodium Chloride (Potassium Chl 20 Meq In Ns) 1,000 mls @ 75 mls/hr IV .[id number] SEUN Stop: 03/13/18 05:36 Last Admin: 03/12/18 06:02 Dose: 75 mls/hr Levetiracetam 750 mg/ Sodium (Chloride) 107.5 mls @ 215 mls/hr IVPB Q12 SEUN Propofol (Diprivan) 1,000 mg in 100 mls @ 1.497 mls/hr IV .Q24H SEUN; 5 MCG/KG/ MIN PRN Reason: Protocol Stop: 03/13/18 15:49 Midazolam HCl 50 mg/ Dextrose 100 mls @ 20 mls/hr IV .Q5H ONE; 10 MG/HR PRN Reason: Protocol Stop: 03/12/18 20:48 Last Admin: 03/12/18 16:26 Dose: 10 mg/hr, 20 mls/hr Phenytoin (Dilantin) 100 mg IVP Q8 SEUN Last Admin: 03/12/18 08:16 Dose: 100 mg - Labs Labs: 03/12/18 04:30 03/12/18 04:30 - Constitutional Appears: No Acute Distress - Head Exam Head Exam: NORMAL INSPECTION - Eye Exam Eye Exam: PERRL - ENT Exam Additional comments: Intubated - Neck Exam Neck Exam: Normal Inspection - Respiratory Exam Respiratory Exam: Decreased Breath Sounds (b/l) - Cardiovascular Exam Cardiovascular Exam: REGULAR RHYTHM - GI/Abdominal Exam GI & Abdominal Exam: Soft, Normal Bowel Sounds - Back Exam Back Exam: NORMAL INSPECTION - Neurological Exam Additional comments: Intubated, sedated - Psychiatric Exam Additional comments: Sedated - Skin Skin Exam: Warm Assessment and Plan (1) Seizure Status: Acute (2) Alcohol abuse with intoxication Status: Acute (3) DTs (delirium tremens) Status: Acute (4) Hypokalemia Status: Acute (5) Dehydration Status: Acute - Assessment and Plan (Free Text) Plan: Continue ventilatory support, sedated with Propofol, continue rest of Tx. ICU Time: 35 min.
[2018-03-13] MEDS: Phenytoin 250 mg/5 ml Inj IVP SCH ×3 (00:37→17:01)
[2018-03-13 05:45] LABS: ABG ALLEN TEST YES; ARTERIAL BLOOD GAS HCO3 27.6 mmol/L (21-28); ARTERIAL BLOOD GAS HEMOGLOBIN 11.3 g/dL (11.7-17.4); ARTERIAL BLOOD GAS O2 CAPACITY 15.9 mL/dL (16-24); ARTERIAL BLOOD GAS O2 CONTENT 15.9 ML/dL (15-23); ARTERIAL BLOOD GAS O2 SAT 100.2 % (95-98); ARTERIAL BLOOD GAS PCO2 34 mm/Hg (35-45); ARTERIAL BLOOD GAS PO2 183 mm/Hg (80-100); ARTERIAL BLOOD GAS TCO2 27.5 mmol/L (22-28)
[2018-03-13 06:37] LABS: HEMOGLOBIN 7.7 g/dL (12.0-18.0); MEAN CELL VOLUME 101.7 fl (80.0-94.0); MEAN CORPUSCULAR HEMOGLOBIN 33.4 pg (27.0-31.0); MEAN CORPUSCULAR HGB CONC 32.9 g/dL (33.0-37.0); RBC 2.3 Mil/uL (4.40-5.90); WHITE BLOOD COUNT 3.5 K/uL (4.8-10.8)
[2018-03-13] MEDS ORDERED: Midazolam 50 MG in Dextrose 5% In Water 50 ML IV ONE (07:32)
[2018-03-13] MEDS ORDERED: Multivitamin (MVI) 10 ML, Thiamine 100 MG, Folic Acid 1 MG in Dextrose 5%/0.45% NS 1,00... IV ONE (08:00)
[2018-03-13 08:44] LABS: HEMOGLOBIN 9.2 g/dL (12.0-18.0); MEAN CELL VOLUME 101.9 fl (80.0-94.0); MEAN CORPUSCULAR HEMOGLOBIN 33.8 pg (27.0-31.0); MEAN CORPUSCULAR HGB CONC 33.2 g/dL (33.0-37.0); RBC 2.72 Mil/uL (4.40-5.90); RED CELL DISTRIBUTION WIDTH 12.9 % (11.5-14.5); WHITE BLOOD COUNT 4.7 K/uL (4.8-10.8)
--- NOTE | 2018-03-13 08:50 | RAD ---
HISTORY: intubated COMPARISON: Portable chest 03/12/2018. FINDINGS: Endotracheal and nasogastric tubes do not appear significantly changed in position. LUNGS: No active pulmonary disease. PLEURA: No significant pleural effusion identified, no pneumothorax apparent. CARDIOVASCULAR: Normal. OSSEOUS STRUCTURES: No significant abnormalities. VISUALIZED UPPER ABDOMEN: Normal. OTHER FINDINGS: None. IMPRESSION: No interval acute cardiopulmonary disease appreciated. ET and nasogastric tubes unchanged in position grossly.
--- NOTE | 2018-03-13 09:32 | CP.PCM.PN ---
Subjective - Date & Time of Evaluation Date of Evaluation: 03/13/18 Time of Evaluation: 09:26 - Subjective Subjective: Mr. Angulo was seen and examined at the bedside in ICU. He remains on mechanical ventilator on PRVC mode. He is able to follow simple commands such as opening his eyes, mouth, squeezing his bilateral upper extremities, and raising his bilateral lower extremities. His pupils are sluggish to react but equal in size. He is on sedation of midazaolam and proprofol being titrated down. He is also on bilateral wrist restrains due to episodes of restlessness. There was no untoward events overnight. Objective - Vital Signs/Intake and Output Vital Signs (last 24 hours): Temp Pulse Resp BP Pulse Ox 99.4 F 104 H 14 107/88 100 03/13/18 04:00 03/13/18 06:00 03/13/18 06:00 03/13/18 06:00 03/13/18 06:00 Intake and Output: 03/13/18 03/13/18 06:59 18:59 Intake Total 755 70 Balance 755 70 - Medications Medications: Current Medications Acetaminophen (Tylenol 650mg/20.3ml Solution Ud) 650 mg PO Q4 PRN PRN Reason: Temperature Last Admin: 03/12/18 04:12 Dose: 650 mg Multivitamins/Vitamin C 10 ml/Thiamine HCl 100 mg/ Folic Acid 1 mg/ Dextrose/ Sodium Chloride 1,011.2 mls @ 75 mls/hr IV .[id number] ONE Stop: 03/13/18 21:28 Levetiracetam 750 mg/ Sodium (Chloride) 107.5 mls @ 215 mls/hr IVPB Q12 SEUN Last Admin: 03/13/18 08:37 Dose: 215 mls/hr Propofol (Diprivan) 1,000 mg in 100 mls @ 4.491 mls/hr IV .[id number] SEUN; 15 MCG/ KG/MIN PRN Reason: Protocol Stop: 03/13/18 20:15 Last Titration: 03/13/18 07:52 Dose: Infused Midazolam HCl 50 mg/ Dextrose 100 mls @ 20 mls/hr IV .Q5H ONE; 10 MG/HR PRN Reason: Protocol Stop: 03/13/18 12:31 Last Admin: 05/14/18 08:04 Dose: 10 mg/hr, 20 mls/hr Phenytoin (Dilantin) 100 mg IVP Q8 SEUN Last Admin: 03/13/18 08:36 Dose: 100 mg - Labs Labs: 03/13/18 08:34 03/12/18 04:30 - Constitutional Appears: No Acute Distress - Head Exam Head Exam: NORMAL INSPECTION - Eye Exam Pupil Exam: Miosis, PERRL - Neurological Exam Neurological Exam: Alert, Awake Neuro motor strength exam: Left Upper Extremity: 5, Right Upper Extremity: 5, Left Lower Extremity: 4, Right Lower Extremity: 4 Additional comments: Neurological improvement from previous examination, he is able to follow simple commands. Sensation is intact. Assessment and Plan (1) Seizure Assessment & Plan: Case discussed with Dr. Garcia, continue all current medical regimen. Pending repeat dilantin level. Pending CT scan of the head and EEG.Recommend to treat any electrolytes abnormalities. Status: Acute
[2018-03-13 09:41] LABS: ALT/SGPT 31 U/L (21-72); AST/SGOT 25 U/L (17-59); BLOOD UREA NITROGEN < 2 mg/dl (9-20); GFR AFRICAN-AMERICAN > 60; GFR NON-AFRICAN AMERICAN > 60
--- NOTE | 2018-03-13 10:20 | CT ---
PROCEDURE: CT HEAD WITHOUT CONTRAST. HISTORY: Seizure COMPARISON: Comparison made with prior study 07/31/2017. TECHNIQUE: Axial computed tomography images were obtained through the head/brain without intravenous contrast. Radiation dose: Total exam DLP = 933.7 the mGy-cm. This CT exam was performed using one or more of the following dose reduction techniques: Automated exposure control, adjustment of the mA and/or kV according to patient size, and/or use of iterative reconstruction technique. FINDINGS: HEMORRHAGE: No acute parenchymal, subarachnoid nor extra-axial hemorrhage. . BRAIN: Minor chronic periventricular white matter ischemic changes are felt be present. No obvious parenchymal nor extra-axial mass or collection. Moderate - significant generalized volume loss VENTRICLES: No obstructive hydrocephalus. CALVARIUM: Calvarium appears intact though somewhat thickened. Is there history of Dilantin medication therapy? . PARANASAL SINUSES: Mild mucosal periosteal inflammatory changes seen within the frontal sinus. There is also a focus of polypoid like mucosal thickening right maxillary sinus. . Minimal mucosal thickening seen within few ethmoid air cells MASTOID AIR CELLS: Unremarkable as visualized. No inflammatory changes. OTHER FINDINGS: None. IMPRESSION: No acute intracranial hemorrhage. . Mild chronic periventricular white matter ischemic changes. Moderate to fairly significant generalized volume loss Thickened calvarium; rule out the sequela Dilantin therapy.
[2018-03-13] MEDS ORDERED: Propofol 10 mg/ml 1,000 MG/100 ML VIAL IV SCH (11:30)
--- NOTE | 2018-03-13 11:36 | CP.CCUPN ---
CCU Subjective - Physician Review Subjective (Free Text): 03/13/18 12:59 The patient was Seen/interviewed and examined by me at the bedside during ICU round, Medical records reviewed and Management issues were discussed and formulated with the house staff. Events reviewed 42 Years old Male with PMHx of Seizure disorder and ETOH abuse. Who was admitted on 03/09 for withdrawal seizure, non-compliant with meds. He then absconded from the hospital, then returned on 03/11 in DT's, with hallucinations. Brought to ICU and intubated and sedated. Remained sedated with propofol and versed and orally intubated and sedated. Clinically improving and hemodynamically improved No Vasopressors Weaning off the sedation, he is more awake, comfortable, NAD Afebrile, NSR on the monitor Last 24H I&O 2550/[address] scan and EEG today Continued on Banana Bag, alternating with NS@75 Tolerating tube feeding with Jevity @ goal, free wter flushes 100ml q8h. This morning labs revealed hypokalemia (supplemented), No Leucocytosis, Platelets count trending up, and stable renal function. Critical Care Time Spent (in minutes): 35 CCU Objective - Vital Signs / Intake & Output Vital Signs (Last 4 hours): Vital Signs Temp Pulse Resp BP Pulse Ox 03/13/18 10:00 101 H 13 110/87 100 03/13/18 08:00 98.9 F 101 H 14 96/76 L 100 Intake and Output (Last 8hrs): Intake & Output 03/12/18 03/13/18 03/13/18 22:59 06:59 14:59 Intake Total 1045 250 485 Output Total 1200 200 Balance -155 250 285 Intake: IV 605 250 370 Intake, Piggyback 220 115 Tube Feeding 120 Free Water Flush 100 Output: Urine 1200 200 Urethral (Ruth) 1200 200 Other: # Bowel Movements 0 - Physical Exam Physical Exam Limitations: Positive for: Other (sedated with propofol and versed and orally intubated and sedated) Head: Positive for: Atraumatic, Normocephalic Pupils: Positive for: PERRL Extroacular Muscles: Positive for: EOMI Conjunctiva: Positive for: Normal Mouth: Positive for: Moist Mucous Membranes Neck: Positive for: Normal Range of Motion, Trachea Midline. Negative for: Meningeal Signs, MIDLINE TENDERNESS, Paraspinal Tenderness, JVD, Lymphadenopathy , Bruit, Other Respiratory/Chest: Positive for: Clear to Auscultation, Good Air Exchange Cardiovascular: Positive for: Regular Rate and Rhythm, Normal S1, S2 Abdomen: Positive for: Normal Bowel Sounds. Negative for: Tenderness, Distention, Peritoneal Signs Back: Negative for: CVA Tenderness Upper Extremity: Positive for: Normal Inspection, NORMAL PULSES. Negative for: Edema Lower Extremity: Positive for: Normal Inspection, NORMAL PULSES. Negative for: CALF TENDERNESS, Erythema Psychiatric: Positive for: Other (sedated) - Medications Active Medications: Active Medications Generic Name Dose Route Start Last Admin Trade Name Freq PRN Reason Stop Dose Admin Acetaminophen 650 mg 03/11/18 20:31 03/12/18 04:12 Tylenol 650mg/20.3ml Solution Ud PO 650 mg Q4 PRN Administration Temperature Multivitamins/Vitamin C 10 ml/ 1,011.2 mls @ 75 mls/hr 03/13/18 08:00 Thiamine HCl 100 mg/ Folic IV 03/13/18 21:28 Acid 1 mg/ Dextrose/Sodium .[id number] ONE Chloride Levetiracetam 750 mg/ Sodium 107.5 mls @ 215 mls/hr 03/12/18 21:00 03/13/18 08:37 Chloride IVPB 215 mls/hr Q12 SEUN Administration Propofol 1,000 mg in 100 mls @ 4.491 mls/hr 03/12/18 20:15 03/13/18 07:52 Diprivan IV 03/13/18 20:15 Infused .[id number] SEUN Titration Protocol 15 MCG/KG/MIN Midazolam HCl 50 mg/ Dextrose 100 mls @ 20 mls/hr 03/13/18 07:32 03/13/18 08: 04 IV 03/13/18 12:31 10 mg/hr .Q5H ONE 20 mls/hr Protocol Administration 10 MG/HR Propofol 1,000 mg in 100 mls @ 1.497 mls/hr 03/13/18 11:30 Diprivan IV 03/14/18 11:18 .Q24H SEUN Protocol 5 MCG/KG/MIN Phenytoin 100 mg 03/11/18 17:00 03/13/18 08:36 Dilantin IVP 100 mg Q8 SEUN Administration - Patient Studies Lab Studies: Microbiology Studies 03/11/18 21:00 Blood Culture - Preliminary Blood-Venous NO GROWTH AFTER 24 HOURS 03/11/18 20:30 Blood Culture - Preliminary Blood-Venous NO GROWTH AFTER 24 HOURS 03/12/18 09:30 Gram Stain - Final Trachasp Lab Studies 03/13/18 03/13/18 03/13/18 Range/Units 10:12 08:34 08:34 WBC 4.7 L (4.8-10.8) K/uL RBC 2.72 L (4.40-5.90) Mil/uL Hgb 9.2 L (12.0-18.0) g/dL Hct 27.7 L (35.0-51.0) % MCV 101.9 H (80.0-94.0) fl MCH 33.8 H (27.0-31.0) pg MCHC 33.2 (33.0-37.0) g/dL RDW 12.9 (11.5-14.5) % Plt Count 63 L (130-400) K/uL pCO2 (35-45) mm/Hg pO2 (80-100) mm/Hg HCO3 (21-28) mmol/L ABG pH (7.35-7.45) ABG Total CO2 (22-28) mmol/L ABG O2 Saturation (95-98) % ABG O2 Content (15-23) ML/dL ABG Base Excess (-2.0-3.0) mmol/L ABG Hemoglobin (11.7-17.4) g/dL ABG Carboxyhemoglobin (0.5-1.5) % POC ABG HHb (Measured) (0.0-5.0) % ABG Methemoglobin (0.0-3.0) % ABG O2 Capacity (16-24) mL/dL Octavio Test A-a O2 Difference mm/Hg Hgb O2 Saturation (95.0-98.0) % Vent Mode Mechanical Rate FiO2 % Tidal Volume PEEP Sodium 97 L* D (132-148) mmol/l Potassium 2.2 L* (3.6-5.0) MMOL/L Chloride 71 L D (98-107) mmol/L Carbon Dioxide 15 L (22-30) mmol/L Anion Gap 13 (10-20) BUN < 2 L (9-20) mg/dl Creatinine 0.3 L (0.8-1.5) mg/dl Est GFR ( Amer) > 60 Est GFR (Non-Af Amer) > 60 POC Glucose (mg/dL) 119 H (65-110) mg/dL Random Glucose 1463 H* (75-110) mg/dL Calcium 5.0 L* D (8.4-10.2) mg/dL Total Bilirubin 0.3 (0.2-1.3) mg/dl AST 25 (17-59) U/L ALT 31 (21-72) U/L Alkaline Phosphatase 32 L D (38-126) U/L Total Protein 4.0 L (6.3-8.2) G/DL Albumin 2.0 L D (3.5-5.0) g/dL Globulin 2.0 L (2.2-3.9) gm/dL Albumin/Globulin Ratio 1.0 (1.0-2.1) 03/13/18 03/13/18 Range/Units 06:24 05:09 WBC 3.5 L D (4.8-10.8) K/uL RBC 2.30 L (4.40-5.90) Mil/uL Hgb 7.7 L D (12.0-18.0) g/dL Hct 23.4 L (35.0-51.0) % MCV 101.7 H D (80.0-94.0) fl MCH 33.4 H (27.0-31.0) pg MCHC 32.9 L (33.0-37.0) g/dL RDW 13.0 (11.5-14.5) % Plt Count 45 L (130-400) K/uL pCO2 34 L (35-45) mm/Hg pO2 183 H (80-100) mm/Hg HCO3 27.6 (21-28) mmol/L ABG pH 7.50 H (7.35-7.45) ABG Total CO2 27.5 (22-28) mmol/L ABG O2 Saturation 100.2 H (95-98) % ABG O2 Content 15.9 (15-23) ML/dL ABG Base Excess 3.4 H (-2.0-3.0) mmol/L ABG Hemoglobin 11.3 L (11.7-17.4) g/dL ABG Carboxyhemoglobin 1.6 H (0.5-1.5) % POC ABG HHb (Measured) -0.2 L (0.0-5.0) % ABG Methemoglobin 1.2 (0.0-3.0) % ABG O2 Capacity 15.9 L (16-24) mL/dL Octavio Test Yes A-a O2 Difference 60.0 mm/Hg Hgb O2 Saturation 97.4 (95.0-98.0) % Vent Mode Prvc ac Mechanical Rate 12 FiO2 40.0 % Tidal Volume 400 PEEP 5 Sodium (132-148) mmol/l Potassium (3.6-5.0) MMOL/L Chloride (98-107) mmol/L Carbon Dioxide (22-30) mmol/L Anion Gap (10-20) BUN (9-20) mg/dl Creatinine (0.8-1.5) mg/dl Est GFR ( Amer) Est GFR (Non-Af Amer) POC Glucose (mg/dL) (65-110) mg/dL Random Glucose (75-110) mg/dL Calcium (8.4-10.2) mg/dL Total Bilirubin (0.2-1.3) mg/dl AST (17-59) U/L ALT (21-72) U/L Alkaline Phosphatase (38-126) U/L Total Protein (6.3-8.2) G/DL Albumin (3.5-5.0) g/dL Globulin (2.2-3.9) gm/dL Albumin/Globulin Ratio (1.0-2.1) Laboratory Results - last 24 hr 03/13/18 03/13/18 03/13/18 05:09 06:24 08:34 WBC 3.5 L D 4.7 L RBC 2.30 L 2.72 L Hgb 7.7 L D 9.2 L Hct 23.4 L 27.7 L MCV 101.7 H D 101.9 H MCH 33.4 H 33.8 H MCHC 32.9 L 33.2 RDW 13.0 12.9 Plt Count 45 L 63 L pCO2 34 L pO2 183 H HCO3 27.6 ABG pH 7.50 H ABG Total CO2 27.5 ABG O2 Saturation 100.2 H ABG O2 Content 15.9 ABG Base Excess 3.4 H ABG Hemoglobin 11.3 L ABG Carboxyhemoglobin 1.6 H POC ABG HHb (Measured) -0.2 L ABG Methemoglobin 1.2 ABG O2 Capacity 15.9 L Octavio Test Yes A-a O2 Difference 60.0 Hgb O2 Saturation 97.4 Vent Mode Prvc ac Mechanical Rate 12 FiO2 40.0 Tidal Volume 400 PEEP 5 Sodium Potassium Chloride Carbon Dioxide Anion Gap BUN Creatinine Est GFR ( Amer) Est GFR (Non-Af Amer) POC Glucose (mg/dL) Random Glucose Calcium Total Bilirubin AST ALT Alkaline Phosphatase Total Protein Albumin Globulin Albumin/Globulin Ratio 03/13/18 03/13/18 08:34 10:12 WBC RBC Hgb Hct MCV MCH MCHC RDW Plt Count pCO2 pO2 HCO3 ABG pH ABG Total CO2 ABG O2 Saturation ABG O2 Content ABG Base Excess ABG Hemoglobin ABG Carboxyhemoglobin POC ABG HHb (Measured) ABG Methemoglobin ABG O2 Capacity Octavio Test A-a O2 Difference Hgb O2 Saturation Vent Mode Mechanical Rate FiO2 Tidal Volume PEEP Sodium 97 L* D Potassium 2.2 L* Chloride 71 L D Carbon Dioxide 15 L Anion Gap 13 BUN < 2 L Creatinine 0.3 L Est GFR ( Amer) > 60 Est GFR (Non-Af Amer) > 60 POC Glucose (mg/dL) 119 H Random Glucose 1463 H* Calcium 5.0 L* D Total Bilirubin 0.3 AST 25 ALT 31 Alkaline Phosphatase 32 L D Total Protein 4.0 L Albumin 2.0 L D Globulin 2.0 L Albumin/Globulin Ratio 1.0 Fingerstick Blood Sugar Results: 121 Review of Systems - Review of Systems Systems not reviewed;Unavailable: Intubated Critical Care Progress Note - Ventilator Checklist Head of Bed 30 Degrees: Yes Daily Sedation Vacation: Yes Daily Assessment of Readiness to Wean: Yes Daily Spontaneous Breathing Trial: Yes PUD Prophalyxis: Yes DVT Prophylaxis: Yes Oral Care with Chlorhexidine Gluconate {CHG}: Yes - Extremities/Vascular Does the Patient have a Central Venous Catheter?: No Does the Patient need a Central Venous Catheter?: No - Prophylaxis GI Prophylaxis GI: PPI - Prophylaxis DVT Prophylaxis DVT: Not Indicated (Thrombocytopenia) - Nutrition Nutrition: Nutrition Category Date Time Status NPO Diet [DIET] Diets 03/12/18 Lunch Active Assessment/Plan (1) DTs (delirium tremens) Current Visit: Yes Status: Acute (2) Alcohol withdrawal Current Visit: No Status: Acute (3) Dehydration Current Visit: No Status: Acute (4) Generalized seizure Current Visit: No Status: Acute Priority: High - Assessment and Plan (Free Text) Assessment: Awake orally intubated and mechanically ventilated. PRVC AC12 TV400 FiO2 40% PEEP5. Resp nonlabored spontaneous resp noted. Vent weaning in process, weaning of the sedations Tolerating CPAP trial, adequate saturation good TV Sinus rhythm Pt. suctioned, minimal Respiratory secretions removed. Continued on Banana Bag, alternating with NS@75 Tolerating tube feeding with Jevity @ goal, free wter flushes 100ml q8h. This morning labs revealed hypokalemia (supplemented), No Leucocytosis, Platelets count trending up, and stable renal function. S/p spiked fever, pancultured, negative so far. Neurology consult appretiated Continue intravenous thiamine and Folate Fall/aspiration/seizure precautions DVT proph - SCD, no AC sec to Thrombocyropenia GI proph - protonix Code status - full code Critical Care Time 35 minutes
[2018-03-13] MEDS ORDERED: Potassium Chloride 20 mEq/15 ml LIQ UD PO ONE (11:52)
[2018-03-13] MEDS ORDERED: Potassium CL 10 MEQ/50 ML 50 ML IVPB SCH (12:00)
[2018-03-13] MEDS: Potassium Chloride 20 mEq 100 ML IVPB SCH ×4 (12:12→17:28)
--- NOTE | 2018-03-13 14:11 | CP.PCM.PN ---
Subjective - Date & Time of Evaluation Date of Evaluation: 03/13/18 Time of Evaluation: 12:20 - Subjective Subjective: F/U Seizure. Pt awake, no c/o, on 1:1. Objective - Vital Signs/Intake and Output Vital Signs (last 24 hours): Temp Pulse Resp BP Pulse Ox 98.9 F 101 H 13 110/87 100 03/13/18 08:00 03/13/18 10:00 03/13/18 10:00 03/13/18 10:00 03/13/18 10:00 Intake and Output: 03/13/18 03/13/18 06:59 18:59 Intake Total 755 485 Output Total 200 Balance 755 285 - Medications Medications: Current Medications Acetaminophen (Tylenol 650mg/20.3ml Solution Ud) 650 mg PO Q4 PRN PRN Reason: Temperature Last Admin: 03/12/18 04:12 Dose: 650 mg Multivitamins/Vitamin C 10 ml/Thiamine HCl 100 mg/ Folic Acid 1 mg/ Dextrose/ Sodium Chloride 1,011.2 mls @ 75 mls/hr IV .[id number] ONE Stop: 03/13/18 21:28 Levetiracetam 750 mg/ Sodium (Chloride) 107.5 mls @ 215 mls/hr IVPB Q12 SEUN Last Admin: 03/13/18 08:37 Dose: 215 mls/hr Propofol (Diprivan) 1,000 mg in 100 mls @ 4.491 mls/hr IV .[id number] SEUN; 15 MCG/ KG/MIN PRN Reason: Protocol Stop: 03/13/18 20:15 Last Titration: 03/13/18 07:52 Dose: Infused Propofol (Diprivan) 1,000 mg in 100 mls @ 1.497 mls/hr IV .Q24H SEUN; 5 MCG/KG/ MIN PRN Reason: Protocol Stop: 03/14/18 11:18 Last Admin: 03/13/18 07:30 Dose: 30 mcg/kg/min, 8.981 mls/hr Potassium Chloride (Potassium Chloride 20 Meq/100 Ml) 100 mls @ 50 mls/hr IVPB Q2H SEUN Stop: 03/13/18 16:14 Last Admin: 03/13/18 12:12 Dose: 50 mls/hr Potassium Chloride (Potassium Chloride 20 Meq/100 Ml) 100 mls @ 50 mls/hr IVPB Q2H [facility] Stop: 03/13/18 16:14 Pantoprazole Sodium (Protonix Inj) 40 mg IVP DAILY [facility] Phenytoin (Dilantin) 100 mg IVP Q8 [facility] Last Admin: 03/13/18 08:36 Dose: 100 mg - Labs Labs: 03/13/18 08:34 03/13/18 08:34 - Constitutional Appears: Other (intubated, sedated) - Head Exam Head Exam: NORMAL INSPECTION - Eye Exam Eye Exam: PERRL Additional comments: Pupils sluggish reactive to light - ENT Exam Additional comments: Intubated - Neck Exam Neck Exam: Normal Inspection - Respiratory Exam Respiratory Exam: Decreased Breath Sounds (b/l) - Cardiovascular Exam Cardiovascular Exam: REGULAR RHYTHM - GI/Abdominal Exam GI & Abdominal Exam: Soft, Normal Bowel Sounds - Extremities Exam Extremities Exam: Normal Inspection - Back Exam Back Exam: NORMAL INSPECTION - Neurological Exam Additional comments: Intubated, sedated - Psychiatric Exam Additional comments: Sedated - Skin Skin Exam: Warm Assessment and Plan (1) Seizure Status: Acute (2) DTs (delirium tremens) Status: Acute (3) Alcohol abuse with intoxication Status: Acute (4) Hypokalemia Status: Acute - Assessment and Plan (Free Text) Plan: Pt still suicidal, continue on 1:1, Midazolan, Diprivan, Potassium and rest of Tx, f/u Psychiatric consult. ICU Time: 38 min.
[2018-03-13] MEDS ORDERED: Ondansetron HCl 4 mg/5 ml Oral Soln NG STA (16:06)
[2018-03-13 16:58] LABS: ABG ALLEN TEST YES; ARTERIAL BLOOD GAS HCO3 27.3 mmol/L (21-28); ARTERIAL BLOOD GAS O2 SAT 99.9 % (95-98); ARTERIAL BLOOD GAS PCO2 39 mm/Hg (35-45); ARTERIAL BLOOD GAS PH 7.45 (7.35-7.45); ARTERIAL BLOOD GAS PO2 154 mm/Hg (80-100); ARTERIAL BLOOD GAS TCO2 28.3 mmol/L (22-28)
[2018-03-13 17:09] LABS: HEMOGLOBIN 11.2 g/dL (12.0-18.0); MEAN CELL VOLUME 99.8 fl (80.0-94.0); MEAN CORPUSCULAR HEMOGLOBIN 33.4 pg (27.0-31.0); MEAN CORPUSCULAR HGB CONC 33.5 g/dL (33.0-37.0); RBC 3.34 Mil/uL (4.40-5.90); RED CELL DISTRIBUTION WIDTH 12.8 % (11.5-14.5); WHITE BLOOD COUNT 7.1 K/uL (4.8-10.8)
[2018-03-13 17:15] LABS: BLOOD UREA NITROGEN 2 mg/dl (9-20); CALCIUM 8.6 mg/dL (8.4-10.2); GFR AFRICAN-AMERICAN > 60; GFR NON-AFRICAN AMERICAN > 60
[2018-03-13] MEDS: Acetaminophen 650mg/20.3ml solution UD PO PRN (19:39)
[2018-03-14] MEDS: Phenytoin 250 mg/5 ml Inj IVP SCH ×3 (00:32→16:31)
[2018-03-14] MEDS ORDERED: Potassium Ch 20mEq in D5-1/2NS 1,000 ML IV SCH (05:45)
[2018-03-14 05:54] LABS: HEMOGLOBIN 9.9 g/dL (12.0-18.0); MEAN CELL VOLUME 100.9 fl (80.0-94.0); MEAN CORPUSCULAR HEMOGLOBIN 33.8 pg (27.0-31.0); MEAN CORPUSCULAR HGB CONC 33.5 g/dL (33.0-37.0); RBC 2.92 Mil/uL (4.40-5.90); RED CELL DISTRIBUTION WIDTH 12.6 % (11.5-14.5); WHITE BLOOD COUNT 8.5 K/uL (4.8-10.8)
[2018-03-14 06:10] LABS: BLOOD UREA NITROGEN 3 mg/dl (9-20); CALCIUM 8.4 mg/dL (8.4-10.2); GFR AFRICAN-AMERICAN > 60; GFR NON-AFRICAN AMERICAN > 60
--- NOTE | 2018-03-14 07:59 | CP.CCUPN ---
CCU Subjective - Physician Review Subjective (Free Text): 03/14/18 The patient was Seen/interviewed and examined by me at the bedside during ICU round, Medical records reviewed and Management issues were discussed and formulated with the house staff. Events reviewed 42 Years old Male with PMHx of Seizure disorder and ETOH abuse. Who was admitted on 03/09 for withdrawal and seizure sec to non-compliant with meds, He then absconded from the hospital, then returned on 03/11 in DT's, with hallucinations. Brought to ICU and orally intubated and sedated with propofol Patient was was successfully extubated on 03/13 Pt AAO x3, comfortable, NAD Clinically improving and hemodynamically improved No Vasopressors Afebrile, NSR on the monitor Last 24H I&O 2140/1100 Tolerating PO diet Continued on Banana Bag, alternating with NS@75 This morning labs revealed hypokalemia (supplemented), No Leucocytosis, Platelets count trending up 63-->84-->93, and stable renal function. CCU Objective - Vital Signs / Intake & Output Vital Signs (Last 4 hours): Vital Signs Temp Pulse Resp BP Pulse Ox 03/14/18 06:51 87 20 106/74 100 03/14/18 06:00 88 18 105/74 100 03/14/18 04:00 100.1 F H 100 H 21 102/69 100 Intake and Output (Last 8hrs): Intake & Output 03/13/18 03/14/18 03/14/18 22:59 06:59 14:59 Intake Total 805 650 75 Output Total 350 400 Balance 455 250 75 Intake: IV 525 600 75 Intake, Piggyback 200 Oral 30 50 Tube Feeding 50 Output: Urine 350 400 Urethral (Ruth) 350 Urine, Voided 400 Other: # Voids Urine, Voided 1 # Bowel Movements 1 - Physical Exam Head: Positive for: Atraumatic, Normocephalic Pupils: Positive for: PERRL Extroacular Muscles: Positive for: EOMI Conjunctiva: Positive for: Normal Mouth: Positive for: Moist Mucous Membranes Neck: Positive for: Normal Range of Motion, Trachea Midline. Negative for: Meningeal Signs, MIDLINE TENDERNESS, Paraspinal Tenderness, JVD, Lymphadenopathy , Bruit, Other Respiratory/Chest: Positive for: Clear to Auscultation, Good Air Exchange Cardiovascular: Positive for: Regular Rate and Rhythm, Normal S1, S2 Abdomen: Positive for: Normal Bowel Sounds. Negative for: Tenderness, Distention, Peritoneal Signs Back: Negative for: CVA Tenderness Upper Extremity: Positive for: Normal Inspection, NORMAL PULSES. Negative for: Edema Lower Extremity: Positive for: Normal Inspection, NORMAL PULSES. Negative for: CALF TENDERNESS, Erythema Neurological: Positive for: GCS=15, CN II-XII Intact, Speech Normal, Motor Func Grossly Intact Skin: Positive for: Warm, Dry. Negative for: Rashes Psychiatric: Positive for: Alert, Oriented x 3, Other (sedated) - Medications Active Medications: Active Medications Generic Name Dose Route Start Last Admin Trade Name Freq PRN Reason Stop Dose Admin Acetaminophen 650 mg 03/11/18 20:31 03/13/18 19:39 Tylenol 650mg/20.3ml Solution Ud PO 650 mg Q4 PRN Administration Temperature Chlordiazepoxide 25 mg 03/13/18 19:00 03/14/18 00:39 Librium PO 25 mg Q8 SEUN Administration Levetiracetam 750 mg/ Sodium 107.5 mls @ 215 mls/hr 03/12/18 21:00 03/13/18 20:02 Chloride IVPB 215 mls/hr Q12 SEUN Administration Propofol 1,000 mg in 100 mls @ 1.497 mls/hr 03/13/18 11:30 03/13/18 07:30 Diprivan IV 03/14/18 11:18 30 mcg/kg/min .Q24H SEUN 8.981 mls/hr Protocol Administration 5 MCG/KG/MIN Potassium Chloride/Dextrose/Sod Cl 1,000 mls @ 100 mls/hr 03/14/18 05:45 06:50 Potassium Chl 20 Meq In D5-1/2ns IV 03/14/18 15:44 100 mls/hr .Q10H SEUN Administration Pantoprazole Sodium 40 mg 03/13/18 13:00 03/13/18 15:25 Protonix Inj IVP 40 mg DAILY SEUN Administration Phenytoin 100 mg 03/11/18 17:00 03/14/18 00:32 Dilantin IVP 100 mg Q8 SEUN Administration - Patient Studies Lab Studies: Microbiology Studies 03/11/18 21:00 Blood Culture - Preliminary Blood-Venous NO GROWTH AFTER 48 HOURS 03/11/18 20:30 Blood Culture - Preliminary Blood-Venous NO GROWTH AFTER 48 HOURS 03/11/18 21:15 Urine Culture - Final Urine,Catheterized No Growth (<1,000 CFU/ML) 03/11/18 21:10 MRSA Culture (Admit) - Final Naris MRSA NOT DETECTED Lab Studies 03/14/18 03/14/18 03/13/18 Range/Units 04:20 04:20 17:03 WBC 8.5 (4.8-10.8) K/uL RBC 2.92 L (4.40-5.90) Mil/uL Hgb 9.9 L (12.0-18.0) g/dL Hct 29.5 L (35.0-51.0) % MCV 100.9 H (80.0-94.0) fl MCH 33.8 H (27.0-31.0) pg MCHC 33.5 (33.0-37.0) g/dL RDW 12.6 (11.5-14.5) % Plt Count 93 L (130-400) K/uL pCO2 (35-45) mm/Hg pO2 (80-100) mm/Hg HCO3 (21-28) mmol/L ABG pH (7.35-7.45) ABG Total CO2 (22-28) mmol/L ABG O2 Saturation (95-98) % ABG Base Excess (-2.0-3.0) mmol/L Octavio Test ABG Potassium (3.6-5.2) mmol/L A-a O2 Difference mm/Hg Glucose (75-110) mg/dL Lactate (0.7-2.1) mmol/L FiO2 % Sodium 139 (132-148) mmol/l Potassium 3.5 L (3.6-5.0) MMOL/L Chloride 101 (98-107) mmol/L Carbon Dioxide 28 (22-30) mmol/L Anion Gap 14 (10-20) BUN 3 L (9-20) mg/dl Creatinine 0.5 L (0.8-1.5) mg/dl Est GFR ( Amer) > 60 Est GFR (Non-Af Amer) > 60 POC Glucose (mg/dL) (65-110) mg/dL Random Glucose 93 (75-110) mg/dL Calcium 8.4 (8.4-10.2) mg/dL Total Bilirubin (0.2-1.3) mg/dl AST (17-59) U/L ALT (21-72) U/L Alkaline Phosphatase (38-126) U/L Total Protein (6.3-8.2) G/DL Albumin (3.5-5.0) g/dL Globulin (2.2-3.9) gm/dL Albumin/Globulin Ratio (1.0-2.1) Arterial Blood Potassium (3.6-5.2) mmol/L Phenytoin 14.2 (10-20) ug/ML 03/13/18 03/13/18 03/13/18 Range/Units 16:49 16:31 16:31 WBC 7.1 D (4.8-10.8) K/uL RBC 3.34 L (4.40-5.90) Mil/uL Hgb 11.2 L D (12.0-18.0) g/dL Hct 33.3 L (35.0-51.0) % MCV 99.8 H D (80.0-94.0) fl MCH 33.4 H (27.0-31.0) pg MCHC 33.5 (33.0-37.0) g/dL RDW 12.8 (11.5-14.5) % Plt Count 84 L D (130-400) K/uL pCO2 39 (35-45) mm/Hg pO2 154 H (80-100) mm/Hg HCO3 27.3 (21-28) mmol/L ABG pH 7.45 (7.35-7.45) ABG Total CO2 28.3 H (22-28) mmol/L ABG O2 Saturation 99.9 H (95-98) % ABG Base Excess 3.0 (-2.0-3.0) mmol/L Octavio Test Yes ABG Potassium 3.2 L (3.6-5.2) mmol/L A-a O2 Difference 82.0 mm/Hg Glucose 167 H (75-110) mg/dL Lactate 1.1 (0.7-2.1) mmol/L FiO2 40.0 % Sodium 136.0 137 (132-148) mmol/l Potassium 3.3 L (3.6-5.0) MMOL/L Chloride 106.0 98 D (98-107) mmol/L Carbon Dioxide 24 (22-30) mmol/L Anion Gap 18 (10-20) BUN 2 L (9-20) mg/dl Creatinine 0.5 L (0.8-1.5) mg/dl Est GFR ( Amer) > 60 Est GFR (Non-Af Amer) > 60 POC Glucose (mg/dL) (65-110) mg/dL Random Glucose 153 H (75-110) mg/dL Calcium 8.6 (8.4-10.2) mg/dL Total Bilirubin (0.2-1.3) mg/dl AST (17-59) U/L ALT (21-72) U/L Alkaline Phosphatase (38-126) U/L Total Protein (6.3-8.2) G/DL Albumin (3.5-5.0) g/dL Globulin (2.2-3.9) gm/dL Albumin/Globulin Ratio (1.0-2.1) Arterial Blood Potassium 3.2 L (3.6-5.2) mmol/L Phenytoin (10-20) ug/ML 03/13/18 03/13/18 03/13/18 Range/Units 10:12 08:34 08:34 WBC 4.7 L (4.8-10.8) K/uL RBC 2.72 L (4.40-5.90) Mil/uL Hgb 9.2 L (12.0-18.0) g/dL Hct 27.7 L (35.0-51.0) % MCV 101.9 H (80.0-94.0) fl MCH 33.8 H (27.0-31.0) pg MCHC 33.2 (33.0-37.0) g/dL RDW 12.9 (11.5-14.5) % Plt Count 63 L (130-400) K/uL pCO2 (35-45) mm/Hg pO2 (80-100) mm/Hg HCO3 (21-28) mmol/L ABG pH (7.35-7.45) ABG Total CO2 (22-28) mmol/L ABG O2 Saturation (95-98) % ABG Base Excess (-2.0-3.0) mmol/L Octavio Test ABG Potassium (3.6-5.2) mmol/L A-a O2 Difference mm/Hg Glucose (75-110) mg/dL Lactate (0.7-2.1) mmol/L FiO2 % Sodium 97 L* D (132-148) mmol/l Potassium 2.2 L* (3.6-5.0) MMOL/L Chloride 71 L D (98-107) mmol/L Carbon Dioxide 15 L (22-30) mmol/L Anion Gap 13 (10-20) BUN < 2 L (9-20) mg/dl Creatinine 0.3 L (0.8-1.5) mg/dl Est GFR ( Amer) > 60 Est GFR (Non-Af Amer) > 60 POC Glucose (mg/dL) 119 H (65-110) mg/dL Random Glucose 1463 H* (75-110) mg/dL Calcium 5.0 L* D (8.4-10.2) mg/dL Total Bilirubin 0.3 (0.2-1.3) mg/dl AST 25 (17-59) U/L ALT 31 (21-72) U/L Alkaline Phosphatase 32 L D (38-126) U/L Total Protein 4.0 L (6.3-8.2) G/DL Albumin 2.0 L D (3.5-5.0) g/dL Globulin 2.0 L (2.2-3.9) gm/dL Albumin/Globulin Ratio 1.0 (1.0-2.1) Arterial Blood Potassium (3.6-5.2) mmol/L Phenytoin (10-20) ug/ML Laboratory Results - last 24 hr 03/13/18 03/13/18 03/13/18 08:34 08:34 10:12 WBC 4.7 L RBC 2.72 L Hgb 9.2 L Hct 27.7 L MCV 101.9 H MCH 33.8 H MCHC 33.2 RDW 12.9 Plt Count 63 L pCO2 pO2 HCO3 ABG pH ABG Total CO2 ABG O2 Saturation ABG Base Excess Octavio Test ABG Potassium A-a O2 Difference Glucose Lactate FiO2 Sodium 97 L* D Potassium 2.2 L* Chloride 71 L D Carbon Dioxide 15 L Anion Gap 13 BUN < 2 L Creatinine 0.3 L Est GFR ( Amer) > 60 Est GFR (Non-Af Amer) > 60 POC Glucose (mg/dL) 119 H Random Glucose 1463 H* Calcium 5.0 L* D Total Bilirubin 0.3 AST 25 ALT 31 Alkaline Phosphatase 32 L D Total Protein 4.0 L Albumin 2.0 L D Globulin 2.0 L Albumin/Globulin Ratio 1.0 Arterial Blood Potassium Phenytoin 03/13/18 03/13/18 03/13/18 16:31 16:31 16:49 WBC 7.1 D RBC 3.34 L Hgb 11.2 L D Hct 33.3 L MCV 99.8 H D MCH 33.4 H MCHC 33.5 RDW 12.8 Plt Count 84 L D pCO2 39 pO2 154 H HCO3 27.3 ABG pH 7.45 ABG Total CO2 28.3 H ABG O2 Saturation 99.9 H ABG Base Excess 3.0 Octavio Test Yes ABG Potassium 3.2 L A-a O2 Difference 82.0 Glucose 167 H Lactate 1.1 FiO2 40.0 Sodium 137 136.0 Potassium 3.3 L Chloride 98 D 106.0 Carbon Dioxide 24 Anion Gap 18 BUN 2 L Creatinine 0.5 L Est GFR ( Amer) > 60 Est GFR (Non-Af Amer) > 60 POC Glucose (mg/dL) Random Glucose 153 H Calcium 8.6 Total Bilirubin AST ALT Alkaline Phosphatase Total Protein Albumin Globulin Albumin/Globulin Ratio Arterial Blood Potassium 3.2 L Phenytoin 03/13/18 03/14/18 03/14/18 17:03 04:20 04:20 WBC 8.5 RBC 2.92 L Hgb 9.9 L Hct 29.5 L MCV 100.9 H MCH 33.8 H MCHC 33.5 RDW 12.6 Plt Count 93 L pCO2 pO2 HCO3 ABG pH ABG Total CO2 ABG O2 Saturation ABG Base Excess Octavio Test ABG Potassium A-a O2 Difference Glucose Lactate FiO2 Sodium 139 Potassium 3.5 L Chloride 101 Carbon Dioxide 28 Anion Gap 14 BUN 3 L Creatinine 0.5 L Est GFR ( Amer) > 60 Est GFR (Non-Af Amer) > 60 POC Glucose (mg/dL) Random Glucose 93 Calcium 8.4 Total Bilirubin AST ALT Alkaline Phosphatase Total Protein Albumin Globulin Albumin/Globulin Ratio Arterial Blood Potassium Phenytoin 14.2 Fingerstick Blood Sugar Results: 121 Review of Systems - Cardiovascular Cardiovascular: absent: As Per HPI, Acrocyanosis, Chest Pain, Chest Pain at Rest , Chest Pain with Activity, Claudication, Diaphoresis, Dyspnea, Dyspnea on Exertion, Edema, Irregular Heart Rhythm, Pain Radiating to Arm/Neck/Jaw, Leg Edema, Leg Ulcers, Lightheadedness, Orthopnea, Palpitations, Paroxysmal Nocturnal Dyspnea, Pedal Edema, Radiating Pain, Rapid Heart Rate, Slow Heart Rate, Syncope, Other, UNREMARKABLE - Respiratory Respiratory: absent: As Per HPI, Cough, Dyspnea, Hemoptysis, Dyspnea on Exertion , Wheezing, Snoring, Stridor, Pain on Inspiration, Chest Congestion, Excessive Mucous Production, Change in Mucous Color, Pain with Coughing, Other, UNREMARKABLE Critical Care Progress Note - Extremities/Vascular Does the Patient have a Central Venous Catheter?: No Does the Patient need a Central Venous Catheter?: No Does the Patient have a Ruth Catheter?: No Does the Patient need a Ruth Catheter?: No - Nutrition Nutrition: Nutrition Category Date Time Status NPO Diet [DIET] Diets 03/12/18 Lunch Active Assessment/Plan (1) DTs (delirium tremens) Current Visit: Yes Status: Acute Priority: High (2) Alcohol withdrawal Current Visit: No Status: Acute (3) Dehydration Current Visit: No Status: Acute (4) Generalized seizure Current Visit: No Status: Acute Priority: High - Assessment and Plan (Free Text) Assessment: 42 Years old Male with PMHx of Seizure disorder and ETOH abuse. Who was admitted on 03/09 for withdrawal and seizure sec to non-compliant with meds, He then absconded from the hospital, then returned on 03/11 in DT's, with hallucinations. Brought to ICU and orally intubated and sedated with propofol Patient was successfully extubated on 03/13 Continued IV Hydraions @100/H Completed Banana Bag, alternating with NS S/p spiked fever, DVT proph - SCD, start SQ Heparin GI proph PO protonix Code status - full code No Leucocytosis, pancultured, cultures negative so far. Thrombocyropenia, , Platelets count trending up 63-->84-->93
[2018-03-14] MEDS ORDERED: Potassium Chloride 20 mEq ER Tab PO ONE (10:39)
--- NOTE | 2018-03-14 13:19 | CP.PCM.DIS ---
Provider - Provider Date of Admission: 03/11/18 09:52 Attending physician: Kal Aviles MD Diagnosis - Discharge Diagnosis (1) Seizure Status: Acute Priority: High (2) DTs (delirium tremens) Status: Acute Priority: High (3) Alcohol abuse with intoxication Status: Acute Priority: High (4) Hypokalemia Status: Acute Priority: High Hospital Course - Lab Results Lab Results: Micro Results 03/12/18 09:30 Trachasp Gram Stain - Final 03/12/18 09:30 Trachasp Sputum Culture - Final NORMAL ORAL [place] 03/11/18 21:00 Blood-Venous Blood Culture - Preliminary NO GROWTH AFTER 48 HOURS 03/11/18 20:30 Blood-Venous Blood Culture - Preliminary NO GROWTH AFTER 48 HOURS 03/11/18 21:15 Urine,Catheterized Urine Culture - Final No Growth (<1,000 CFU/ML) 03/11/18 21:10 Naris MRSA Culture (Admit) - Final MRSA NOT DETECTED Most Recent Lab Values WBC 8.5 K/uL (4.8-10.8) 03/14/18 04:20 RBC 2.92 Mil/uL (4.40-5.90) L 03/14/18 04:20 Hgb 9.9 g/dL (12.0-18.0) L 03/14/18 04:20 Hct 29.5 % (35.0-51.0) L 03/14/18 04:20 MCV 100.9 fl (80.0-94.0) H 03/14/18 04:20 MCH 33.8 pg (27.0-31.0) H 03/14/18 04:20 MCHC 33.5 g/dL (33.0-37.0) 03/14/18 04:20 RDW 12.6 % (11.5-14.5) 03/14/18 04:20 Plt Count 93 K/uL (130-400) L 03/14/18 04:20 MPV 9.2 fl (7.2-11.7) 03/12/18 04:30 Neut % (Auto) 82.5 % (50.0-75.0) H 03/12/18 04:30 Lymph % (Auto) 5.5 % (20.0-40.0) L 03/12/18 04:30 [place] % (Auto) 11.7 % (0.0-10.0) H 03/12/18 04:30 Eos % (Auto) 0.0 % (0.0-4.0) 03/12/18 04:30 Baso % (Auto) 0.3 % (0.0-2.0) 03/12/18 04:30 Neut # (Auto) 6.3 K/uL (1.8-7.0) 03/12/18 04:30 Lymph # (Auto) 0.4 K/uL (1.0-4.3) L 03/12/18 04:30 Waldo # (Auto) 0.9 K/uL (0.0-0.8) H 03/12/18 04:30 Eos # (Auto) 0.0 K/uL (0.0-0.7) 03/12/18 04:30 Baso # (Auto) 0.0 K/uL (0.0-0.2) 03/12/18 04:30 Neutrophils % (Manual) 85 % (42-75) H 03/12/18 04:30 Lymphocytes % (Manual) 7 % (20-50) L 03/12/18 04:30 Monocytes % (Manual) 8 % (0-10) 03/12/18 04:30 Platelet Estimate Decreased (NORMAL) L 03/12/18 04:30 Poikilocytosis (manual Slight 03/12/18 04:30 Anisocytosis (manual) Slight 03/12/18 04:30 Ovalocytes Slight 03/12/18 04:30 pCO2 39 mm/Hg (35-45) 03/13/18 16:49 pO2 154 mm/Hg (80-100) H 03/13/18 16:49 HCO3 27.3 mmol/L (21-28) 03/13/18 16:49 ABG pH 7.45 (7.35-7.45) 03/13/18 16:49 ABG Total CO2 28.3 mmol/L (22-28) H 03/13/18 16:49 ABG O2 Saturation 99.9 % (95-98) H 03/13/18 16:49 ABG O2 Content 15.9 ML/dL (15-23) 03/13/18 05:09 ABG Base Excess 3.0 mmol/L (-2.0-3.0) 03/13/18 16:49 ABG Hemoglobin 11.3 g/dL (11.7-17.4) L 03/13/18 05:09 ABG Carboxyhemoglobin 1.6 % (0.5-1.5) H 03/13/18 05:09 POC ABG HHb (Measured) -0.2 % (0.0-5.0) L 03/13/18 05:09 ABG Methemoglobin 1.2 % (0.0-3.0) 03/13/18 05:09 ABG O2 Capacity 15.9 mL/dL (16-24) L 03/13/18 05:09 Octavio Test Yes 03/13/18 16:49 ABG Potassium 3.2 mmol/L (3.6-5.2) L 03/13/18 16:49 A-a O2 Difference 82.0 mm/Hg 03/13/18 16:49 Hgb O2 Saturation 97.4 % (95.0-98.0) 03/13/18 05:09 Sodium 136.0 mmol/L (132-148) 03/13/18 16:49 Chloride 106.0 mmol/L (98-107) 03/13/18 16:49 Glucose 167 mg/dL (75-110) H 03/13/18 16:49 Lactate 1.1 mmol/L (0.7-2.1) 03/13/18 16:49 Vent Mode Prvc ac 03/13/18 05:09 Mechanical Rate 12 03/13/18 05:09 FiO2 40.0 % 03/13/18 16:49 Tidal Volume 400 03/13/18 05:09 PEEP 5 03/13/18 05:09 Crit Value Called To Dr kal aviles 03/12/18 04:00 Crit Value Called By iJm 03/12/18 04:00 Crit Value Read Back Y 03/12/18 04:00 Blood Gas Notified Time 429 03/12/18 04:00 Sodium 139 mmol/l (132-148) 03/14/18 04:20 Potassium 3.5 MMOL/L (3.6-5.0) L 03/14/18 04:20 Chloride 101 mmol/L (98-107) 03/14/18 04:20 Carbon Dioxide 28 mmol/L (22-30) 03/14/18 04:20 Anion Gap 14 (10-20) 03/14/18 04:20 BUN 3 mg/dl (9-20) L 03/14/18 04:20 Creatinine 0.5 mg/dl (0.8-1.5) L 03/14/18 04:20 Est GFR ( Amer) > 60 03/14/18 04:20 Est GFR (Non-Af Amer) > 60 03/14/18 04:20 POC Glucose (mg/dL) 119 mg/dL (65-110) H 03/13/18 10:12 Random Glucose 93 mg/dL (75-110) 03/14/18 04:20 Calcium 8.4 mg/dL (8.4-10.2) 03/14/18 04:20 Phosphorus 3.9 mg/dl (2.5-4.5) 03/12/18 04:30 Magnesium 1.2 MG/DL (1.6-2.3) L 03/12/18 04:30 Total Bilirubin 0.3 mg/dl (0.2-1.3) 03/13/18 08:34 AST 25 U/L (17-59) 03/13/18 08:34 ALT 31 U/L (21-72) 03/13/18 08:34 Alkaline Phosphatase 32 U/L (38-126) L D 03/13/18 08:34 Total Protein 4.0 G/DL (6.3-8.2) L 03/13/18 08:34 Albumin 2.0 g/dL (3.5-5.0) L D 03/13/18 08:34 Globulin 2.0 gm/dL (2.2-3.9) L 03/13/18 08:34 Albumin/Globulin Ratio 1.0 (1.0-2.1) 03/13/18 08:34 Arterial Blood Potassium 3.2 mmol/L (3.6-5.2) L 03/13/18 16:49 Urine Color Yellow (YELLOW) 03/11/18 21:15 Urine Clarity Clear (Clear) 03/11/18 21:15 Urine pH 6.0 (5.0-8.0) 03/11/18 21:15 Ur Specific [place] 1.006 (1.003-1.030) 03/11/18 21:15 Urine Protein Negative mg/dL (NEGATIVE) 03/11/18 21:15 Urine Glucose (UA) 150 mg/dL (Normal) 03/11/18 21:15 Urine Ketones Trace mg/dL (NEGATIVE) 03/11/18 21:15 Urine Blood Negative (NEGATIVE) 03/11/18 21:15 Urine Nitrate Negative (NEGATIVE) 03/11/18 21:15 Urine Bilirubin Negative (NEGATIVE) 03/11/18 21:15 Urine Urobilinogen 0.2-1.0 mg/dL (0.2-1.0) 03/11/18 21:15 Ur Leukocyte Esterase Neg Jm/uL (Negative) 03/11/18 21:15 Urine RBC (Auto) 1 /hpf (0-3) 03/11/18 21:15 Urine Microscopic WBC 2 /hpf (0-5) 03/11/18 21:15 Urine Bacteria Rare (<OCC) 03/11/18 21:15 Urine Opiates Screen Negative (NEGATIVE) 03/11/18 11:20 Urine Methadone Screen Negative (NEGATIVE) 03/11/18 11:20 Ur Barbiturates Screen Negative (NEGATIVE) 03/11/18 11:20 Phenytoin 14.2 ug/ML (10-20) 03/13/18 17:03 Ur Phencyclidine Scrn Negative (NEGATIVE) 03/11/18 11:20 Ur Amphetamines Screen Negative (NEGATIVE) 03/11/18 11:20 U Benzodiazepines Scrn Negative (NEGATIVE) 03/11/18 11:20 U Oth Cocaine Metabols Negative (NEGATIVE) 03/11/18 11:20 U Cannabinoids Screen Negative (NEGATIVE) 03/11/18 11:20 Alcohol, Quantitative < 10 mg/dl (0-10) 03/11/18 08:18 Discharge Exam - Head Exam Head Exam: NORMAL INSPECTION Discharge Plan - Follow Up Plan Condition: SERIOUS Disposition: HOME/ ROUTINE
--- NOTE | 2018-03-14 16:10 | CP.PCM.PN ---
Subjective - Date & Time of Evaluation Date of Evaluation: 03/14/18 Time of Evaluation: 12:50 - Subjective Subjective: F/U Seizure. Pt extubated, smiling, able to talk. Objective - Vital Signs/Intake and Output Vital Signs (last 24 hours): Temp Pulse Resp BP Pulse Ox 98.6 F 90 14 103/64 100 03/14/18 12:00 03/14/18 12:00 03/14/18 12:00 03/14/18 12:00 03/14/18 12:00 Intake and Output: 03/14/18 03/14/18 06:59 18:59 Intake Total 1105 825 Output Total 400 350 Balance 705 475 - Medications Medications: Current Medications Acetaminophen (Tylenol 650mg/20.3ml Solution Ud) 650 mg PO Q4 PRN PRN Reason: Temperature Last Admin: 03/13/18 19:39 Dose: 650 mg Chlordiazepoxide (Librium) 25 mg PO Q8 [facility] Last Admin: 03/14/18 09:18 Dose: 25 mg Heparin Sodium (Porcine) (Heparin) 5,000 units SC Q8 SEUN PRN Reason: Protocol Levetiracetam 750 mg/ Sodium (Chloride) 107.5 mls @ 215 mls/hr IVPB Q12 [facility] Last Admin: 03/14/18 09:17 Dose: 215 mls/hr Pantoprazole Sodium (Protonix Ec Tab) 20 mg PO DAILY [facility] Phenytoin (Dilantin) 100 mg IVP Q8 [facility] Last Admin: 03/14/18 09:16 Dose: 100 mg - Labs Labs: 03/14/18 04:20 03/14/18 04:20 - Constitutional Appears: No Acute Distress - Head Exam Head Exam: NORMAL INSPECTION - Eye Exam Eye Exam: PERRL - ENT Exam Additional comments: Extubated - Neck Exam Neck Exam: Normal Inspection - Respiratory Exam Respiratory Exam: Clear to Ausculation Bilateral - Cardiovascular Exam Cardiovascular Exam: REGULAR RHYTHM - GI/Abdominal Exam GI & Abdominal Exam: Soft, Normal Bowel Sounds - Extremities Exam Extremities Exam: Normal Inspection - Back Exam Back Exam: NORMAL INSPECTION - Neurological Exam Neurological Exam: Alert, Awake, Oriented x3 - Psychiatric Exam Psychiatric exam: Normal Mood - Skin Skin Exam: Warm Assessment and Plan (1) Seizure Status: Acute (2) DTs (delirium tremens) Status: Acute (3) Alcohol abuse with intoxication Status: Acute (4) Hypokalemia Status: Acute - Assessment and Plan (Free Text) Plan: Continue Librium, Dilantin and rest of Tx. ICU Time: 36 min.
[2018-03-14] MEDS: Pantoprazole 20 mg EC Tab PO SCH (16:29)
[2018-03-14 21:20] LABS: PROTHROMBIN TIME 10.8 Seconds (9.8-13.1)
[2018-03-14 21:21] LABS: PARTIAL THROMBOPLASTIN TIME 32.3 Seconds (25.6-37.1)
[2018-03-15 05:50] LABS: HEMOGLOBIN 9.7 g/dL (12.0-18.0); MEAN CORPUSCULAR HEMOGLOBIN 33.6 pg (27.0-31.0); MEAN CORPUSCULAR HGB CONC 33.5 g/dL (33.0-37.0); RBC 2.89 Mil/uL (4.40-5.90); RED CELL DISTRIBUTION WIDTH 12.7 % (11.5-14.5); WHITE BLOOD COUNT 5.4 K/uL (4.8-10.8)
[2018-03-15 06:04] LABS: BLOOD UREA NITROGEN 3 mg/dl (9-20); CALCIUM 8.9 mg/dL (8.4-10.2); GFR AFRICAN-AMERICAN > 60; GFR NON-AFRICAN AMERICAN > 60
[2018-03-15] MEDS: Pantoprazole 20 mg EC Tab PO SCH (08:40)
[2018-03-15] MEDS ORDERED: Phenytoin 100 mg/2 ml Inj IVP SCH (09:30)
--- NOTE | 2018-03-15 09:36 | EEG ---
DATE: 03/13/2018 Technical Information: Electrodes were placed according to the 10-20 [employer] electrode system by ct mri technologist. Total of 23 electrodes (21 EEG and 2 EKG) were placed. EEG activity was digitally recorded referentially to P1/P2 or A1/A2 electrodes. Continuous monitoring with EEG was performed using digital analysis for spike detection. The [employer] spike and seizure detection algorithms were used for digital EEG analysis throughout the monitoring period to screen the EEG in real-time and dequan the data file with pointers to electrographic seizures and interictal discharges. EEG was screened for electrographic seizures and interictal discharges by a technologist. Physician, epileptologist reviewed detections as well as extensive random samples and whole EEG study in detail. Digital EEG Analysis: Was carried out including FFT (Fast Fourier Transform), R2D2 (Rhythmicity Run Detection and Display), Relative Asymmetry Spectrogram, and voltage plot by the [employer]. The qualitative EEG analysis and the voltage plot mapping were used for detection of foci of paroxysmal and abnormal electrical cortical activity. General Description: Background Rhythm: There is a well-formed, 8-10 Hz posterior dominant rhythm that is reactive, symmetric, and attenuates with eye opening. There was a normal amount of frontal beta noted bilaterally. There is no sleep recorded. Activation Procedures: Photic stimulation: There is no driving noted. Hyperventilation: There is slowing noted that is self-remitted. Abnormal Activity: There are no focal epileptiform discharges noted. No clinical or subclinical seizures noted. IMPRESSION: This is a normal awake and drowsy electroencephalogram. Clinical correlation is required. There is increased beta to the medication effect. Mimi Garcia MD
--- NOTE | 2018-03-15 10:38 | CP.PCM.PN ---
Subjective - Date & Time of Evaluation Date of Evaluation: 03/15/18 Time of Evaluation: 10:37 - Subjective Subjective: Mr. Angulo was seen and examined at the bedside in ICU. He is alert, oriented in all spheres. He denies any headache, dizziness, lightheadedness, nausea, or vomiting. He is able to follow simple commands and claims of having a good appetite. He does not remember when he was extubated. CT scan of the head did not show any acute infarct or hemorrhage.There was no untoward events overnight. Objective - Vital Signs/Intake and Output Vital Signs (last 24 hours): Temp Pulse Resp BP Pulse Ox 98.8 F 92 H 12 114/79 100 03/15/18 08:00 03/15/18 08:00 03/15/18 08:00 03/15/18 08:00 03/15/18 08:00 Intake and Output: 03/15/18 03/15/18 06:59 18:59 Intake Total 425 100 Output Total 800 Balance -375 100 - Medications Medications: Current Medications Acetaminophen (Tylenol 650mg/20.3ml Solution Ud) 650 mg PO Q4 PRN PRN Reason: Temperature Last Admin: 03/13/18 19:39 Dose: 650 mg Chlordiazepoxide (Librium) 25 mg PO Q8 [facility] Last Admin: 03/15/18 08:42 Dose: 25 mg Heparin Sodium (Porcine) (Heparin) 5,000 units SC Q8 [facility] PRN Reason: Protocol Last Admin: 03/15/18 08:40 Dose: 5,000 units Levetiracetam 750 mg/ Sodium (Chloride) 107.5 mls @ 215 mls/hr IVPB Q12 [facility] Last Admin: 03/15/18 08:39 Dose: 215 mls/hr Pantoprazole Sodium (Protonix Ec Tab) 20 mg PO DAILY [facility] Last Admin: 03/15/18 08:40 Dose: 20 mg Phenytoin (Dilantin) 100 mg IVP Q8 [facility] Last Admin: 03/15/18 09:28 Dose: 100 mg - Labs Labs: 03/15/18 04:40 03/15/18 04:40 PT 10.8 Seconds (9.8-13.1) 03/14/18 21:06 INR 1.0 (0.9-1.2) 05/15/18 21:06 APTT 32.3 Seconds (25.6-37.1) 03/14/18 21:06 - Constitutional Appears: No Acute Distress - Head Exam Head Exam: NORMAL INSPECTION - Neurological Exam Neurological Exam: Alert, Awake, Oriented x3 Neuro motor strength exam: Left Upper Extremity: 4, Right Upper Extremity: 4, Left Lower Extremity: 4, Right Lower Extremity: 4 Additional comments: alert, oriented x3, follows commands, and sensation is intact. Assessment and Plan (1) Seizure Assessment & Plan: Case discussed with Dr. Garcia, continue all current medical and physical therapies. Recommend to follow up with Dr. Haynes as an outpatient basis ( his own private neurologist). Status: Acute
[2018-03-15] MEDS: Phenytoin 250 mg/5 ml Inj IVP SCH ×2 (13:19)
[2018-03-15] MEDS ORDERED: Potassium Chloride 20 mEq ER Tab PO ONE (14:30)
--- NOTE | 2018-03-15 14:38 | CP.PCM.PN ---
Subjective - Date & Time of Evaluation Date of Evaluation: 03/15/18 Time of Evaluation: 11:20 - Subjective Subjective: F/U Seizure Pt alert, awake, cooperative. Objective - Vital Signs/Intake and Output Vital Signs (last 24 hours): Temp Pulse Resp BP Pulse Ox 98.3 F 88 18 97/63 L 100 03/15/18 11:49 03/15/18 11:49 03/15/18 11:49 03/15/18 11:49 03/15/18 11:49 Intake and Output: 03/15/18 03/15/18 06:59 18:59 Intake Total 425 200 Output Total 800 Balance -375 200 - Medications Medications: Current Medications Acetaminophen (Tylenol 650mg/20.3ml Solution Ud) 650 mg PO Q4 PRN PRN Reason: Temperature Last Admin: 03/13/18 19:39 Dose: 650 mg Chlordiazepoxide (Librium) 25 mg PO Q8 [facility] Last Admin: 03/15/18 08:42 Dose: 25 mg Heparin Sodium (Porcine) (Heparin) 5,000 units SC Q8 [facility] PRN Reason: Protocol Last Admin: 03/15/18 08:40 Dose: 5,000 units Levetiracetam (Keppra) 750 mg PO BID [facility] Pantoprazole Sodium (Protonix Ec Tab) 20 mg PO DAILY [facility] Last Admin: 03/15/18 08:40 Dose: 20 mg Phenytoin Sodium (Dilantin) 100 mg PO TID [facility] Last Admin: 03/15/18 13:16 Dose: 100 mg - Labs Labs: 03/15/18 04:40 03/15/18 04:40 PT 10.8 Seconds (9.8-13.1) 03/14/18 21:06 INR 1.0 (0.9-1.2) 03/14/18 21:06 APTT 32.3 Seconds (25.6-37.1) 03/14/18 21:06 - Constitutional Appears: No Acute Distress - Head Exam Head Exam: NORMAL INSPECTION - Eye Exam Eye Exam: PERRL - ENT Exam ENT Exam: Normal Exam - Neck Exam Neck Exam: Normal Inspection - Respiratory Exam Respiratory Exam: Clear to Ausculation Bilateral - Cardiovascular Exam Cardiovascular Exam: REGULAR RHYTHM - GI/Abdominal Exam GI & Abdominal Exam: Soft, Normal Bowel Sounds - Extremities Exam Extremities Exam: Normal Inspection - Back Exam Back Exam: NORMAL INSPECTION - Neurological Exam Neurological Exam: Alert, Awake, Oriented x3 - Psychiatric Exam Psychiatric exam: Normal Mood - Skin Skin Exam: Warm Assessment and Plan (1) Seizure Status: Acute (2) Alcohol abuse with intoxication Status: Acute (3) DTs (delirium tremens) Status: Acute (4) Hypokalemia Status: Acute (5) Dehydration Status: Acute - Assessment and Plan (Free Text) Plan: F/U with psychiatric to change Keppra and Dilantin po., continue Librium po
[2018-03-15 23:57] VITALS: RESP 18
[2018-03-16] MEDS: Pantoprazole 20 mg EC Tab PO SCH (08:55)
--- NOTE | 2018-03-16 11:27 | CP.PCM.CON ---
History of Present Illness - History of Present Illness History of Present Illness: Psychiatry consult note CC: "I'm fine." HPI: 42 yo male w/ h/o alcohol use disorder, admitted for DT, status epilepticus and ETOH withdrawal, now improved. Patient denies acute depression/ anxiety/AH/VH/SI/HI. He denies acute psychiatric complaints. PPHx: H/o of alcohol abuse treatment at [facility]. Denies tx w/ psychiatric medications or psychiatric admissions. ALL: NKDA SHx: Umemployed, lives w/ mother, reports that he drinks 3 beers/daily ( minimizing ETOH use), denies drugs/ cig use MSE: A + O x 3, calm, cooperative, good eye contact, speech normal, mood/affect - neutral, thought process- linear/coherent, thought content- no delusions, no AH/VH/SI/HI; fair I/J; fair impulse control Impression: 42 yo male w/ alcohol use disorder, does not need acute psychiatric inpatient admission at this time. He is psychiatrically stable for discharge. -Psychoeducation provided on the dangers of ETOH use -Recommend Librium taper x 3 days -If patient agreeable, would recommend that patient be referred for outpatient alcohol abuse treatment Past Patient History - Infectious Disease Hx of Infectious Diseases: None - Past Medical History & Family History Past Medical History?: Yes - Past Social History Smoking Status: Never Smoked Alcohol: Other (abuse) Drugs: Denies Home Situation {Lives}: Alone - CARDIAC Hx Cardiac Disorders: No - PULMONARY Hx Respiratory Disorders: Yes Hx Asthma: Yes - NEUROLOGICAL Hx Neurological Disorder: Yes Hx Seizures: Yes - HEENT Hx HEENT Problems: No - RENAL Hx Chronic Kidney Disease: No - ENDOCRINE/METABOLIC Hx Endocrine Disorders: No - HEMATOLOGICAL/ONCOLOGICAL Hx Blood Disorders: No - INTEGUMENTARY Hx Dermatological Problems: No - MUSCULOSKELETAL/RHEUMATOLOGICAL Hx Musculoskeletal Disorders: Yes Hx Fractures: Yes (left arm) - GASTROINTESTINAL Hx Gastrointestinal Disorders: No - GENITOURINARY/GYNECOLOGICAL Hx Genitourinary Disorders: No - PSYCHIATRIC Hx Psychophysiologic Disorder: Yes Hx Anxiety: No Hx Depression: Yes - SURGICAL HISTORY Hx Surgeries: Yes Other/Comment: Left arm Sx - ANESTHESIA Hx Anesthesia: Yes Hx Anesthesia Reactions: No Hx Malignant Hyperthermia: No Meds Home Medications: Home Medication List Medication Instructions Recorded Confirmed Type Phenytoin, Extended [Dilantin] 100 mg PO TID #90 cer 05/17/18 Rx levETIRAcetam [Keppra] 750 mg PO BID #60 tab 03/16/18 Rx Allergies/Adverse Reactions: Allergies Allergy/AdvReac Type Severity Reaction Status Date / Time No Known Allergies Allergy Verified 03/09/18 19:11 - Medications Medications: Current Medications Acetaminophen (Tylenol 650mg/20.3ml Solution Ud) 650 mg PO Q4 PRN PRN Reason: Temperature Last Admin: 03/13/18 19:39 Dose: 650 mg Chlordiazepoxide (Librium) 25 mg PO Q8 [facility] Last Admin: 03/16/18 08:58 Dose: 25 mg Heparin Sodium (Porcine) (Heparin) 5,000 units SC Q8 [facility] PRN Reason: Protocol Last Admin: 03/16/18 08:52 Dose: 5,000 units Levetiracetam (Keppra) 750 mg PO BID [facility] Last Admin: 03/16/18 08:54 Dose: 750 mg Pantoprazole Sodium (Protonix Ec Tab) 20 mg PO DAILY [facility] Last Admin: 03/16/18 08:55 Dose: 20 mg Phenytoin Sodium (Dilantin) 100 mg PO TID [facility] Last Admin: 03/16/18 08:51 Dose: 100 mg Results - Vital Signs Recent Vital Signs: Last Vital Signs Temp 98.5 F 03/16/18 07:38 Pulse 97 H 03/16/18 09:00 Resp 18 03/16/18 07:38 BP 101/74 03/16/18 07:38 Pulse Ox 100 03/16/18 07:38 - Labs Result Diagrams: 03/15/18 04:40 03/15/18 04:40
[2018-03-16 12:16] VITALS: BP 100/66; PULSE 84; TEMP 97.8; O2SAT 99
[2018-03-16 12:57] LABS: BLOOD UREA NITROGEN 3 mg/dl (9-20); CALCIUM 9.7 mg/dL (8.4-10.2); GFR AFRICAN-AMERICAN > 60; GFR NON-AFRICAN AMERICAN > 60
--- NOTE | 2018-03-16 13:37 | CP.PCM.PCO ---
Assessment/Plan - Assessment/Plan Assessment (Free Text): Pt stable, seen and cleared for d/c home by all consultants. Pt was seen by psych and social welfare administrator, but refused outpatient resources for ETOH. Pt states he will no longer drink. Rx for Dilantin, Keppra and Librium tapering dose. Pt seen by PT and cleared for d/c. Pt to f/u with his neurologist Dr. Haynes and PMD in 1-2 weeks.
--- NOTE | 2018-03-16 18:28 | CP.PCM.DIS ---
Provider - Provider Date of Admission: 03/11/18 09:52 Attending physician: Kal Aviles MD Diagnosis - Discharge Diagnosis (1) Seizure Status: Acute Priority: High (2) Alcohol abuse with intoxication Status: Acute Priority: High (3) DTs (delirium tremens) Status: Acute Priority: High (4) Hypokalemia Status: Acute Priority: High (5) Dehydration Status: Acute Hospital Course - Lab Results Lab Results: Micro Results 03/11/18 21:00 Blood-Venous Blood Culture - Preliminary NO GROWTH AFTER 4 DAYS 03/11/18 20:30 Blood-Venous Blood Culture - Preliminary NO GROWTH AFTER 4 DAYS 03/12/18 09:30 Trachasp Gram Stain - Final 03/12/18 09:30 Trachasp Sputum Culture - Final NORMAL ORAL [place] 03/11/18 21:15 Urine,Catheterized Urine Culture - Final No Growth (<1,000 CFU/ML) 03/11/18 21:10 Naris MRSA Culture (Admit) - Final MRSA NOT DETECTED Most Recent Lab Values WBC 5.4 K/uL (4.8-10.8) 03/15/18 04:40 RBC 2.89 Mil/uL (4.40-5.90) L 03/15/18 04:40 Hgb 9.7 g/dL (12.0-18.0) L 03/15/18 04:40 Hct 28.9 % (35.0-51.0) L 03/15/18 04:40 MCV 100.0 fl (80.0-94.0) H 03/15/18 04:40 MCH 33.6 pg (27.0-31.0) H 03/15/18 04:40 MCHC 33.5 g/dL (33.0-37.0) 03/15/18 04:40 RDW 12.7 % (11.5-14.5) 03/15/18 04:40 Plt Count 151 K/uL (130-400) 03/15/18 04:40 MPV 9.2 fl (7.2-11.7) 03/12/18 04:30 Neut % (Auto) 82.5 % (50.0-75.0) H 03/12/18 04:30 Lymph % (Auto) 5.5 % (20.0-40.0) L 03/12/18 04:30 [place] % (Auto) 11.7 % (0.0-10.0) H 03/12/18 04:30 Eos % (Auto) 0.0 % (0.0-4.0) 03/12/18 04:30 Baso % (Auto) 0.3 % (0.0-2.0) 03/12/18 04:30 Neut # (Auto) 6.3 K/uL (1.8-7.0) 03/12/18 04:30 Lymph # (Auto) 0.4 K/uL (1.0-4.3) L 03/12/18 04:30 [place] # (Auto) 0.9 K/uL (0.0-0.8) H 03/12/18 04:30 Eos # (Auto) 0.0 K/uL (0.0-0.7) 03/12/18 04:30 Baso # (Auto) 0.0 K/uL (0.0-0.2) 03/12/18 04:30 Neutrophils % (Manual) 85 % (42-75) H 03/12/18 04:30 Lymphocytes % (Manual) 7 % (20-50) L 03/12/18 04:30 Monocytes % (Manual) 8 % (0-10) 03/12/18 04:30 Platelet Estimate Decreased (NORMAL) L 03/12/18 04:30 Poikilocytosis (manual Slight 03/12/18 04:30 Anisocytosis (manual) Slight 03/12/18 04:30 Ovalocytes Slight 03/12/18 04:30 PT 10.8 Seconds (9.8-13.1) 03/14/18 21:06 INR 1.0 (0.9-1.2) 03/14/18 21:06 APTT 32.3 Seconds (25.6-37.1) 03/14/18 21:06 pCO2 39 mm/Hg (35-45) 03/13/18 16:49 pO2 154 mm/Hg (80-100) H 03/13/18 16:49 HCO3 27.3 mmol/L (21-28) 03/13/18 16:49 ABG pH 7.45 (7.35-7.45) 03/13/18 16:49 ABG Total CO2 28.3 mmol/L (22-28) H 03/13/18 16:49 ABG O2 Saturation 99.9 % (95-98) H 03/13/18 16:49 ABG O2 Content 15.9 ML/dL (15-23) 03/13/18 05:09 ABG Base Excess 3.0 mmol/L (-2.0-3.0) 03/13/18 16:49 ABG Hemoglobin 11.3 g/dL (11.7-17.4) L 03/13/18 05:09 ABG Carboxyhemoglobin 1.6 % (0.5-1.5) H 03/13/18 05:09 POC ABG HHb (Measured) -0.2 % (0.0-5.0) L 03/13/18 05:09 ABG Methemoglobin 1.2 % (0.0-3.0) 03/13/18 05:09 ABG O2 Capacity 15.9 mL/dL (16-24) L 03/13/18 05:09 Octavio Test Yes 03/13/18 16:49 ABG Potassium 3.2 mmol/L (3.6-5.2) L 03/13/18 16:49 A-a O2 Difference 82.0 mm/Hg 03/13/18 16:49 Hgb O2 Saturation 97.4 % (95.0-98.0) 03/13/18 05:09 Sodium 136.0 mmol/L (132-148) 03/13/18 16:49 Chloride 106.0 mmol/L (98-107) 03/13/18 16:49 Glucose 167 mg/dL (75-110) H 03/13/18 16:49 Lactate 1.1 mmol/L (0.7-2.1) 03/13/18 16:49 Vent Mode Prvc ac 03/13/18 05:09 Mechanical Rate 12 03/13/18 05:09 FiO2 40.0 % 03/13/18 16:49 Tidal Volume 400 03/13/18 05:09 PEEP 5 03/13/18 05:09 Crit Value Called To Dr kal aviles 03/12/18 04:00 Crit Value Called By Jim 03/12/18 04:00 Crit Value Read Back Y 03/12/18 04:00 Blood Gas Notified Time 429 03/12/18 04:00 Sodium 138 mmol/l (132-148) 03/16/18 12:36 Potassium 4.1 MMOL/L (3.6-5.0) 03/16/18 12:36 Chloride 97 mmol/L (98-107) L 03/16/18 12:36 Carbon Dioxide 25 mmol/L (22-30) 03/16/18 12:36 Anion Gap 20 (10-20) 03/16/18 12:36 BUN 3 mg/dl (9-20) L 03/16/18 12:36 Creatinine 0.5 mg/dl (0.8-1.5) L 03/16/18 12:36 Est GFR ( Amer) > 60 03/16/18 12:36 Est GFR (Non-Af Amer) > 60 03/16/18 12:36 POC Glucose (mg/dL) 119 mg/dL (65-110) H 03/13/18 10:12 Random Glucose 108 mg/dL (75-110) 03/16/18 12:36 Calcium 9.7 mg/dL (8.4-10.2) 03/16/18 12:36 Phosphorus 3.9 mg/dl (2.5-4.5) 03/12/18 04:30 Magnesium 1.2 MG/DL (1.6-2.3) L 03/12/18 04:30 Total Bilirubin 0.3 mg/dl (0.2-1.3) 03/13/18 08:34 AST 25 U/L (17-59) 03/13/18 08:34 ALT 31 U/L (21-72) 03/13/18 08:34 Alkaline Phosphatase 32 U/L (38-126) L D 03/13/18 08:34 Total Protein 4.0 G/DL (6.3-8.2) L 03/13/18 08:34 Albumin 2.0 g/dL (3.5-5.0) L D 03/13/18 08:34 Globulin 2.0 gm/dL (2.2-3.9) L 03/13/18 08:34 Albumin/Globulin Ratio 1.0 (1.0-2.1) 03/13/18 08:34 Arterial Blood Potassium 3.2 mmol/L (3.6-5.2) L 03/13/18 16:49 Urine Color Yellow (YELLOW) 03/11/18 21:15 Urine Clarity Clear (Clear) 03/11/18 21:15 Urine pH 6.0 (5.0-8.0) 03/11/18 21:15 Ur Specific Mobile 1.006 (1.003-1.030) 03/11/18 21:15 Urine Protein Negative mg/dL (NEGATIVE) 03/11/18 21:15 Urine Glucose (UA) 150 mg/dL (Normal) 03/11/18 21:15 Urine Ketones Trace mg/dL (NEGATIVE) 03/11/18 21:15 Urine Blood Negative (NEGATIVE) 03/11/18 21:15 Urine Nitrate Negative (NEGATIVE) 03/11/18 21:15 Urine Bilirubin Negative (NEGATIVE) 03/11/18 21:15 Urine Urobilinogen 0.2-1.0 mg/dL (0.2-1.0) 03/11/18 21:15 Ur Leukocyte Esterase Neg Jm/uL (Negative) 03/11/18 21:15 Urine RBC (Auto) 1 /hpf (0-3) 03/11/18 21:15 Urine Microscopic WBC 2 /hpf (0-5) 03/11/18 21:15 Urine Bacteria Rare (<OCC) 03/11/18 21:15 Urine Opiates Screen Negative (NEGATIVE) 03/11/18 11:20 Urine Methadone Screen Negative (NEGATIVE) 03/11/18 11:20 Ur Barbiturates Screen Negative (NEGATIVE) 03/11/18 11:20 Phenytoin 14.2 ug/ML (10-20) 03/13/18 17:03 Levetiracetam 10.8 mcg/mL 03/11/18 09:20 Ur Phencyclidine Scrn Negative (NEGATIVE) 03/11/18 11:20 Ur Amphetamines Screen Negative (NEGATIVE) 03/11/18 11:20 U Benzodiazepines Scrn Negative (NEGATIVE) 03/11/18 11:20 U Oth Cocaine Metabols Negative (NEGATIVE) 03/11/18 11:20 U Cannabinoids Screen Negative (NEGATIVE) 03/11/18 11:20 Alcohol, Quantitative < 10 mg/dl (0-10) 03/11/18 08:18 Discharge Exam - Head Exam Head Exam: NORMAL INSPECTION Discharge Plan - Discharge Medications Prescriptions: Phenytoin, Extended [Dilantin] 100 mg PO TID #90 cer levETIRAcetam [Keppra] 750 mg PO BID #60 tab chlordiazePOXIDE [Librium] 25 mg PO BID #48 cap - Follow Up Plan Condition: SERIOUS Disposition: HOME/ ROUTINE Instructions: Seizures, Adult (DC), Alcohol Abuse and Alcoholism (DC) Additional Instructions: follow up with on 03/22/18 Referrals: [facility] [Outside] Taz Haynes MD [Medical Doctor] -
== END 2018-03-16 15:00 | disposition home or self-care (01) | DRG 889 ==
LOC: H.ER 07:18 → H.ERHOLD 09:52 → H.ICU/CCU 12:31 → H.TEL 03-15 11:37
PROVIDERS: ADMIT Internal Medicine Pulmonary Disease; ATTEND Internal Medicine Pulmonary Disease
PROC: 5A1945Z Respiratory Ventilation, 24-96 Consecutive Hours (ICD-10-PCS; principal; 2018-03-11)
PROC: 0BH17EZ Insertion of Endotracheal Airway into Trachea, Via Natural or Artificial Opening (ICD-10-PCS; 2018-03-11)
DX: G40.901 Epilepsy, unspecified, not intractable, with status epilepticus (principal); F10.231 Alcohol dependence with withdrawal delirium; E87.6 Hypokalemia; E86.0 Dehydration; F10.221 Alcohol dependence with intoxication delirium; F22 Delusional disorders; F32.9 Major depressive disorder, single episode, unspecified; H57.03 Miosis; J45.909 Unspecified asthma, uncomplicated; Z91.14 Patient's other noncompliance with medication regimen; Z78.1 Physical restraint status; Z79.899 Other long term (current) drug therapy

== ENCOUNTER 2018-09-10 14:58 | Emergency (ER) | payer MEDICAID ==
[2018-09-10 15:11] VITALS: TEMP 99.3; O2SAT 100
[2018-09-10 15:43] LABS: BASO % 0.9 % (0.0-2.0); EOS % 0.2 % (0.0-4.0); HEMOGLOBIN 11.9 g/dL (12.0-18.0); LYMPH % 39.2 % (20.0-40.0); MEAN CELL VOLUME 101.3 fl (80.0-94.0); MEAN CORPUSCULAR HEMOGLOBIN 33.3 pg (27.0-31.0); MEAN CORPUSCULAR HGB CONC 32.8 g/dL (33.0-37.0); MEAN PLATELET VOLUME 9.6 fl (7.2-11.7); MONO # 0.5 K/uL (0.0-0.8); MONO % 19.9 % (0.0-10.0); NEUT # 1.1 K/uL (1.8-7.0); NEUT % 39.8 % (50.0-75.0); NRBC % 0.2 % (0.0-0.0); RBC 3.57 Mil/uL (4.40-5.90); RED CELL DISTRIBUTION WIDTH 12.9 % (11.5-14.5); WHITE BLOOD COUNT 2.6 K/uL (4.8-10.8)
[2018-09-10 15:49] LABS: PROTHROMBIN TIME 10.8 Seconds (9.8-13.1)
[2018-09-10 15:51] LABS: PARTIAL THROMBOPLASTIN TIME 39.3 Seconds (25.6-37.1)
[2018-09-10 15:59] LABS: ALB/GLOB RATIO 1.3 (1.0-2.1); ALBUMIN 5.2 g/dL (3.5-5.0); ALT/SGPT 43 U/L (21-72); AST/SGOT 104 U/L (17-59); BLOOD UREA NITROGEN 8 mg/dl (9-20); CALCIUM 9.4 mg/dL (8.4-10.2); GFR NON-AFRICAN AMERICAN > 60
[2018-09-10] MEDS ORDERED: Sodium Chloride 0.9% 1,000 ML IV STA (16:02)
--- NOTE | 2018-09-10 17:05 | ED PDOC ---
HPI: Seizure Time Seen by Provider: 09/10/18 16:14 Chief Complaint (Nursing): Seizure Chief Complaint (Provider): Seizure History Per: Patient History/Exam Limitations: clinical condition Recent Seizure Activity Began: Unknown Length Of Seizures (Duration): Unknown Post-ictal Period: Yes Additional Complaint(s): Tessie Angulo is a 42 year old male with a past medical history of alcoholism, alcohol related seizures, and delirium tremens who is presenting to the ED for evaluation of seizure. Patient is unable to give history upon arrival due to clinical condition. PMD: none provided Past Medical History Reviewed: Historical Data, Nursing Documentation, Vital Signs, Unable To Obtain (partially) Vital Signs: Last Vital Signs Temp 99.3 F 09/10/18 15:08 Pulse 90 09/10/18 15:46 Resp 18 09/10/18 15:46 BP 146/107 H 09/10/18 15:08 Pulse Ox 100 09/10/18 15:46 - Medical History Other PMH: alcoholism, delirium tremens, alcohol related seizures - Surgical History Surgical History: No Surg Hx - Family History Family History: States: Unknown Family Hx - Allergies Allergies/Adverse Reactions: Allergies Allergy/AdvReac Type Severity Reaction Status Date / Time No Known Allergies Allergy Verified 09/10/18 15:11 Review of Systems ROS Statement: Except As Marked, All Systems Reviewed And Found Negative Review Of Systems: ROS cannot be obtained secondary to pt's inabilty to answer questions. Physical Exam - Reviewed Nursing Documentation Reviewed: Yes Vital Signs Reviewed: Yes - Physical Exam Appears: Positive for: In Acute Distress (acute neurological distress: diffuse tremors, responds to verbal stimuli but mumbles ) Head Exam: Positive for: ATRAUMATIC, NORMOCEPHALIC Skin: Positive for: Warm, Dry Eye Exam: Positive for: EOMI, PERRL ENT: Negative for: Pharyngeal Erythema, Tonsillar Exudate Neck: Positive for: Painless ROM, Supple Cardiovascular/Chest: Positive for: Tachycardia (with regular rhythm) Respiratory: Positive for: Normal Breath Sounds. Negative for: Wheezing Gastrointestinal/Abdominal: Positive for: Soft. Negative for: Tenderness Back: Positive for: Normal Inspection. Negative for: Muscle Spasm Extremity: Positive for: Normal ROM, Other (diffuse tremors). Negative for: Deformity Lymphatic: Negative for: Adenopathy Neurologic/Psych: Positive for: Alert, Other (confused with slurred speech). Negative for: Motor/Sensory Deficits - Laboratory Results Result Diagrams: 09/10/18 15:30 09/10/18 15:30 - ECG O2 Sat by Pulse Oximetry: 100 (RA) Pulse Ox Interpretation: Normal Medical Decision Making Medical Decision Making: Time: 15:30 Impression: seizure, Post ictal state, Alcohol withdrawal Plan: --Alcohol Serum --CMP--Creatine Phosphate --Drug Screen --Lact Acid --Magnesium --Phosphorous --ED Urine Dipstick --CBC--Coag --Phenytoin, Free --Ativan 1 mg IVP --IV Fluids On arrival patient given Ativan with relief of symptoms. 16:30 Patient reports feeling better, and reports that he ran out of Dilantin yesterday. He states that he had his last drink last night and did not drink yet today. Just prior to seizure he reports that he felt like he was going to have a seizu re but does not remember what happened. patient denies headache. Dilantin level ordered -------- --------- Scribe Attestation: Documented by, Joanie Tuttle acting as a scribe for Louann Chavez MD. Provider Scribe Attestation: All medical record entries made by the Scribe were at my direction and personally dictated by me. I have reviewed the chart and agree that the record accurately reflects my personal performance of the history, physical exam, medical decision making, and the department course for this patient. I have also personally directed, reviewed, and agree with the discharge instructions and d isposition. Disposition - Clinical Impression Clinical Impression: Seizure disorder, Alcohol use disorder Counseled Patient/Family Regarding: Studies Performed, Diagnosis, Need For Followup, Rx Given - Disposition Referrals: Alcoholics Anonymous [Outside] Disposition: Routine/Home Disposition Time: 21:08 Condition: IMPROVED Additional Instructions: Restart your dilantin as soon as possible Do not drink alcohol Instructions: Seizures, Adult (DC), Alcohol Abuse and Alcoholism (DC)
[2018-09-10 18:52] LABS: BARBITURATES, UR NEGATIVE (NEGATIVE); BENZODIAZEPINES, UR NEGATIVE (NEGATIVE); OPIATES, UR NEGATIVE (NEGATIVE); PHENCYCLIDINE, UR NEGATIVE (NEGATIVE)
[2018-09-11 00:22] VITALS: BP 133/88; PULSE 92; RESP 18
[2018-09-13 20:47] LABS: PHENYTOIN,FREE <0.5 mg/L (1.0-2.0)
== END 2018-09-10 22:45 | disposition home or self-care (01) ==
LOC: EDBD 14:58 → MERGE 14:58 → H.ER 14:58
DX: G40.909 Epilepsy, unspecified, not intractable, without status epilepticus (principal); F10.239 Alcohol dependence with withdrawal, unspecified
CPT/HCPCS: 80053; 80185; 80186; 80320; 80324; 80345; 80346; 80349; 80353; 80358; 80361; 82550; 83605; 83735; 83992; 84100; 85025; 85610; 85730; 96361; 96374; 96375; 99285; J2060; J7030; Q2009